=== PATIENT | male | born 1970 | race African-American/Black ===

== ENCOUNTER 2022-04-11 19:35 | Emergency (ER) | payer BC, SELFPAY ==
--- NOTE | 2022-04-11 19:39 | ECG_ITS ---
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 Measurements Intervals [place] Rate: 80 P: 13 [place]: 168 QRS: -11 QRSD: 85 T: 24 QT: 396 QTc: 458 Interpretive Statements SINUS RHYTHM LEFT VENTRICULAR HYPERTROPHY AND ST-T CHANGE [VOLTAGE CRITERIA PLUS ST/T ABNORMALITY] Nonspecific T wave changes No previous ECG available for comparison Electronically Signed On 04-11-2022 20:56:21 CDT by Austin Garner M.D. [id number]
[2022-04-11 19:41] VITALS: BP 147/95; PULSE 90; RESP 19; TEMP 37.2; O2SAT 99; BMI 41.5
--- NOTE | 2022-04-11 19:45 | XRR_ITS ---
PROCEDURE INFORMATION: Exam: XR Chest Exam date and time: 04/11/2022 7:55 PM Age: 52 years old Clinical indication: Chest pressure and chest wall pain; Additional info: Chest pain TECHNIQUE: Imaging protocol: Radiologic exam of the chest. Views: 1 view. COMPARISON: No relevant prior studies available. FINDINGS: Lungs: Unremarkable. No consolidation. Pleural spaces: Unremarkable. No pleural effusion. No pneumothorax. Heart/Mediastinum: Unremarkable. No cardiomegaly. Bones/joints: Unremarkable. XR/XR chest 1V portable [id number] IMPRESSION: No acute findings.
[2022-04-11 19:50] LABS: Basophils # 0.1 10^3/uL (0.0-0.1); Basophils % 0.8 %; Eosinophils # 0.1 10^3/uL (0.0-0.8); Eosinophils % 1.4 %; Hematocrit 45.3 % (42.0-52.0); Hemoglobin 14.6 g/dL (11.7-16.6); Lymphocytes # 2.8 10^3/uL (0.8-4.8); Lymphocytes % 43.5 %; Mean Corpuscular HGB Conc 32.2 g/dL (30.0-36.0); Mean Corpuscular Hemoglobin 32.8 pg (28.0-34.0); Mean Corpuscular Volume 101.8 fl (80-94); Monocytes # 0.4 10^3/uL (0.2-0.9); Monocytes % 6.6 %; Neutrophils % 47.4 %; Nucleated Red Blood Cells % 0 %; Platelet Count 209 10^3/cmm (130-400); Red Blood Count 4.45 10^6/uL (4.1-5.3); Red Cell Distribution Width 13.2 % (12.1-15.1); White Blood Count 6.5 10^3/uL (4.0-10.0)
--- NOTE | 2022-04-11 19:52 | ED_ITS ---
HPI - Chest Pain General: Chief Complaint: Chest Pain Stated Complaint: Chest Pain Time Seen by Provider: 04/11/22 19:48 Source: patient and EMS Mode of arrival: EMS Limitations: no limitations History of Present Illness: 52-year-old male states that he has been having abdominal and chest pain over the last month. He states it is worsened over last 2 weeks states it starts in his upper abdomen and goes up to his chest some burning pain denies any shortness of breath denies any vomiting denies any d iaphoresis states he recently moved here he does have a history of bipolar is out of his Depakote. Denies any heart history is a non-smoker. Associated symptoms: Reports abdominal pain; Deny dyspnea or fever(s) Review of Systems Const: Denies: fever(s), chills, body aches or change in appetite Eyes: Denies: blurry vision or eye discomfort ENMT: Denies: throat pain or dental pain Card: Reports: chest pain Resp: Denies: dyspnea GI: Reports: abdominal pain : Denies: dysuria Musc: Denies: neck pain or back pain Skin/Breast: Denies: rash Neuro: Denies: headache(s) Psych: Denies: depression Genaro/Lymph: Denies: easy bruising All/Imm: Denies: urticaria PFSH ED PFSH: Medical History (Updated 04/11/22 @ 20:25 by Yeimy Gilliam MD) Bipolar 1 disorder Social History (Updated 04/11/22 @ 19:54 by Yeimy Gilliam MD) Smoking and tobacco status: never smoked Physical Exam Const: COMMON NORMALS: no acute distress, patient oriented x3 and healthy a ppearing HENMT: COMMON NORMALS: normocephalic and atraumatic HEAD & SCALP: normocephalic and atraumatic Eye: COMMON NORMALS: Equal, round and reactive pupils present and EOMs intact bilaterally PUPIL: Yes Equal, round and reactive pupils present Neck/C-Spine: COMMON NORMALS: full ROM and supple Chest: COMMONS NORMALS: normal inspection of the chest and normal palpation of entire chest wall Resp: COMMON NORMALS: normal respiratory effort, No retractions, No use of accessory muscles and clear to auscultation bilaterally AUSCULTATION: clear to auscultation bilaterally Cardio: COMMON NORMALS: regular rate, regular rhythm and No murmurs present (Cardio) RATE: regular rate RHYTHM: regular rhythm GI: COMMON NORMALS: Normal to inspection, nondistended, normoactive bowel sounds present, Soft to palpation, non-tender and no masses PALPATION: Yes Soft to palpation Extremity: COMMON NORMALS: normal to inspection and full ROM Neuro: COMMON NORMALS: patient oriented x3, moves all extremities and no focal motor deficits Psych: COMMON NORMALS: mental status grossly normal, Normal thought process p resent and cooperative THOUGHT PROCESS: Normal thought process present Skin: COMMON NORMALS: no rashes or lesions noted and no wounds GENERAL SKIN EXAM: no rashes or lesions noted Course Vital Signs: Vital signs: Vital Signs Temperature 98.9 F 04/11/22 19:41 Pulse Rate 85 04/11/22 20:19 Respiratory Rate 12 04/11/22 20:19 Blood Pressure 150/96 04/11/22 20:19 Pulse Oximetry 96 04/11/22 20:19 Oxygen Delivery Me thod 04/11/22 20:19 MDM - Chest Pain Medical Decision Making Patient presents with abdominal pain and chest pain for weeks is likely gastritis his blood works normal troponins normal no sign of acute coronary syndrome his abdominal exam is benign we will start him on Protonix we will refill his Depakote he is to follow-up return if worsening he understands agrees plan. Lab Data : 04/11/22 19:43 04/11/22 19:43 Radiology Impressions Chest X-Ray 04/11/22 19:45 IMPRESSION: No acute findings. Laboratory Results WBC 6.5 10^3/uL (4.0-10.0) 04/11/22 19:43 RBC 4.45 10^6/uL (4.1-5.3) 04/11/22 19:43 Hgb 14.6 g/dL (11.7-16.6) 04/11/22 19:43 Hct 45.3 % (42.0-52.0) 04/11/22 19:43 MCV 101.8 fl (80-94) H 04/11/22 19:43 MCH 32.8 pg (28.0-34.0) 04/11/22 19:43 MCHC 32.2 g/dL (30.0-36.0) 04/11/22 19:43 RDW 13.2 % (12.1-15.1) 04/11/22 19:43 Plt Count 209 10^3/cmm (130-400) 04/11/22 19:43 MPV 10.0 fL (7.4-10.4) 04/11/22 19:43 Neut % (Auto) 47.4 % 04/11/22 19:43 Lymph % (Auto) 43.5 % 04/11/22 19:43 [place] % (Auto) 6.6 % 04/11/22 19:43 Eos % (Auto) 1.4 % 04/11/22 19:43 Baso % (Auto) 0.8 % 04/11/22 19:43 Neut # (Auto) 3.10 10^3/uL (1.8-7.7) 04/11/22 19:43 Lymph # (Auto) 2.8 10^3/uL (0.8-4.8) 04/11/22 19:43 [place] # (Auto) 0.4 10^3/uL (0.2-0.9) 04/11/22 19:43 Eos # (Auto) 0.1 10^3/uL (0.0-0.8) 04/11/22 19:43 Baso # (Auto) 0.1 10^3/uL (0.0-0.1) 04/11/22 19:43 Nucleated RBC % (auto) 0 % 04/11/22 19:43 Nucleated RBCs # 0.0 /100WBC 04/11/22 19:43 Sodium 138 mmol/L (136-145) 04/11/22 19:43 Potassium 3.9 mmol/L (3.5-5.1) 04/11/22 19:43 Chloride 98 mmol/L (98-107) 04/11/22 19:43 Carbon Dioxide 31 mmol/L (22-29) H 04/11/22 19:43 Anion Gap 12.9 (5-19) 04/11/22 19:43 BUN 11 mg/dL (6-20) 04/11/22 19:43 Creatinine 0.8 mg/dL (0.7-1.2) 04/11/22 19:43 GFR Calculation 123.8 mL/min (90-130) 04/11/22 19:43 Glucose 153 mg/dL (65-115) H 04/11/22 19:43 Calculated Osmolality 288 mOsm/kg (285-295) 04/11/22 19:43 Calcium 8.7 mg/dL (8.5-10.5) 04/11/22 19:43 Troponin T Baseline 7 ng/L (0-15) 04/11/22 19:43 Lipase 22 U/L (13-60) 04/11/22 19:43 EKG Data EKG 1: I personally reviewed and interpreted this EKG as follows: EKG interpretation date: 04/11/22 EKG interpretation time: 19:39 Interpretation: nsr hr [address] or t wave abnormalities qrs 85 qtc 432 Discharge Plan Discharge Patient Disposition: Home Clinical Impression: Abdominal pain, Chest pain Prescriptions: New Protonix 40 mg tablet,delayed release (DR/EC) 40 mg PO DAILY Qty: 60 0RF Continued Depakote ER 500 mg Tablet Extended Release 24 Hr 500 mg PO DAILY Qty: 30 0RF Discharge Orders: Discharge ED (Routine); Ordered 04/11/22 Ordered By: Yeimy Gilliam Discharge Diet: Advance as tolerated Discharge Activity: Resume usual activity Patient Instructions: Chest Pain (ED), Abdominal Pain (ED) Coding Level of Care Code ED Desulfurizer Operator for Chg Fwd Exam Comprehensive
[2022-04-11 19:53] VITALS: BP 147/95; PULSE 81; RESP 22; O2SAT 97
[2022-04-11 20:13] LABS: Troponin(5th) Baseline 7 ng/L (0-15)
[2022-04-11 20:14] LABS: Blood Urea Nitrogen 11 mg/dL (6-20); Calcium 8.7 mg/dL (8.5-10.5); Carbon Dioxide 31 mmol/L (22-29); Chloride 98 mmol/L (98-107); Creatinine Clr Calc Pharmacy 150.6513; Glomerular Filtration Rate 123.8 mL/min (90-130); Glucose 153 mg/dL (65-115); Lipase 22 U/L (13-60); Osmolality Calculated 288 mOsm/kg (285-295); Sodium 138 mmol/L (136-145)
[2022-04-11] MEDS: ondansetron 2 mg/ML SDV 2 mL 4 MG IVP (20:15)
[2022-04-11] MEDS: HYDROmorphone 1 mg/mL INJ 1 mL 0.5 MG IVP (20:15)
[2022-04-11 20:19] VITALS: BP 150/96; PULSE 85; RESP 12; O2SAT 96
[2022-04-11 20:20] LABS: Anion Gap 12.9 (5-19); Potassium 3.9 mmol/L (3.5-5.1)
[2022-04-11] MEDS: lidocaine 2% viscous 15 ML, aluminum-mag hydrox-simethicon 30 ML, sucralfate oral liq 1 GM PO (20:56)
[2022-04-11 20:57] VITALS: BP 134/96; PULSE 82; RESP 16; O2SAT 95
== END 2022-04-11 21:24 | disposition home or self-care (01) ==
PROVIDERS: Emergency Medicine; Emergency Provider Emergency Medicine
DX: R10.9 Unspecified abdominal pain (principal); R07.9 Chest pain, unspecified
CPT/HCPCS: 71045; 80048; 83690; 84484; 85025; 93005; 96374; 96375; 99285; J1170; J2405

== ENCOUNTER → 2022-06-05 10:02 | Outpatient (BNVA) | payer OTHER, SELFPAY | PROVIDERS: Visit Provider Psychiatry & Neurology Psychiatry | DX: F33.1 Major depressive disorder, recurrent, moderate (principal) | CPT/HCPCS: 80061; 83036 ==

== ENCOUNTER 2022-06-11 10:25 | Emergency (ER) | payer BC, SELFPAY ==
[2022-06-11 10:39] VITALS: BP 164/95; PULSE 66; RESP 16; TEMP 36.6; O2SAT 94
--- NOTE | 2022-06-11 11:14 | W.ED.EAR ---
HPI - Ear Problem General: Chief complaint: Ear Stated complaint: ear pain, both Time Seen by Provider: 06/11/22 10:43 History of Present Illness: Patient is a 52-year-old male comes to the ED with bilateral ear pain. Symptoms have been going on for about a week but over the last 2 days the ear pain is gotten worse. Denies any drainage from ears. Denies any other complaints. Associated symptoms: Reports ear or mastoid pain (bilateral); Denies fever(s), headache(s) or neck pain Review of Systems Const: Denies: fever(s), chills or fatigue Eyes: Denies: change in vision or eye discomfort ENMT: Reports: ear or mastoid pain (bilateral); Denies: throat pain, odynophagia, nasal discharge or nasal congestion Card: Denies: chest pain, palpitations, edema, swelling of feet/ankles, dyspnea on exertion or orthopnea Resp: Denies: dyspnea, productive cough or non-productive cough GI: Denies: abdominal pain, nausea, vomiting, diarrhea, constipation or hematochezia : Denies: flank pain, difficulty urinating, dysuria or hematuria Musc: Denies: neck pain, back pain or extremity swelling Skin/Breast: Denies: rash or new lesions Neuro: Denies: headache(s), numbness in extremities or weakness in extremities PFSH ED PFSH: Medical History Bipolar 1 disorder Psychiatric care Family History Mother Stroke TIA Bipolar depression Seizure Social History Smoking and tobacco status: never smoked Second hand smoke exposure: No Alcohol intake: never Adopted: No Caregiver/support person: No Lives independently: No Household members: significant other Housing: Manufactured/Mobile home Marital status: Life Partner Number of children: 0 Number of grandchildren: 0 Highest education level completed: High School Graduate service: No Current occupational status: disabled Current occupational exposures/hazards: No Pets and animals: No History of recent travel: No Leisure activites: music and other Leisure activities details: play dj equipment, tictoc Current gender identity: Male Teena/Taoism: None Agree to transfusion: Yes Financial difficulty paying for basics: Not Very Hard Physical Exam Const: COMMON NORMALS: no acute distress, patient oriented x3 and alert GENERAL APPEARANCE: cooperative and comfortable HENMT: COMMON NORMALS: normocephalic and EAC's normal HEAD & SCALP: normocephalic EXTERNAL AUDITORY CANAL: EAC's normal TYMPANIC MEMBRANE: TM abnormal TM laterality: bilateral erythematous and with fluid behind the TM MOUTH: Normal oral and palatal mucosa present THROAT: posterior oropharynx normal and uvula midline Neck/C-Spine: COMMON NORMALS: supple GENERAL: Yes normal visual inspection Resp: COMMON NORMALS: normal respiratory effort, No retractions, No use of accessory muscles and clear to auscultation bilaterally AUSCULTATION: clear to auscultation bilaterally Cardio: COMMON NORMALS: regular rate, regular rhythm, S1 normal heart sound present, S2 normal heart sound present, No gallops present (Cardio), No clicks present (Cardio), No murmurs present (Cardio) and Peripheral pulses 2+ throughout RATE: regular rate RHYTHM: regular rhythm HEART SOUNDS: S1 normal heart sound present and S2 normal heart sound present PERIPHERAL PULSES: Peripheral pulses 2+ throughout GI: COMMON NORMALS: Normal to inspection, nondistended, normoactive bowel sounds present, Soft to palpation, non-tender and no masses PALPATION: Yes Soft to palpation : COMMON NORMALS: Yes no CVA tenderness BLADDER/KIDNEY EXAM: Yes no CVA tenderness Back/Pelvis: COMMON NORMALS: no CVA tenderness Extremity: COMMON NORMALS: normal to inspection Neuro: COMMON NORMALS: patient oriented x3 SENSORIUM/ORIENTATION: Yes alert GAIT: Yes Normal gait present Skin: GENERAL SKIN EXAM: dry skin Course Vital Signs: Vital signs: Vital Signs Temperature 97.8 F 06/11/22 10:39 Pulse Rate 66 06/11/22 10:39 Respiratory Rate 16 06/11/22 10:39 Blood Pressure 164/95 06/11/22 10:39 Pulse Oximetry 94 06/11/22 10:39 MDM - Ear Medical Decision Making Patient is a 52-year-old male comes to the ED with bilateral ear pain. Vitals are stable. Patient appears nontoxic and in no acute distress or pain. Upon exam patient has otitis media in both right and left ears. He was discharged home prescription for antibiotic. Told to follow-up with his PCP in the next week for reevaluation. Patient understood and agreed with plan. Discharge Plan Discharge Patient Disposition: Home Clinical Impression: Otitis media Qualifiers: Otitis media type: serous Chronicity: acute Laterality: bilateral Recurrence: non-recurrent Qualified Code(s): H65.03 - Acute serous otitis media, bilateral Condition: Stable Prescriptions: New amoxicillin-pot clavulanate 500-125 mg tablet 1 tab PO BID 10 Days Qty: 20 0RF No Action sertraline [Zoloft] 50 mg tablet 50 mg PO DAILY Qty: 30 2RF albuterol sulfate 90 mcg/actuation HFA aerosol inhaler 2 puff inhalation Q6H PRN fluticasone propion-salmeterol [Wixela Inhub] 250-50 mcg/dose blister with device 1 inh inhalation BID potassium citrate 99 mg capsule 99 mg PO DAILY magnesium 200 mg tablet 200 mg PO DAILY multivitamin Tablet 1 tab PO DAILY Protonix 40 mg tablet,delayed release (DR/EC) 40 mg PO DAILY Qty: 60 0RF Depakote ER 500 mg Tablet Extended Release 24 Hr 500 mg PO DAILY Qty: 30 0RF Discharge Orders: Discharge ED (Routine); Ordered 06/11/22 Ordered By: Neo Diaz Discharge Diet: Regular Discharge Activity: Increase activity as tolerated Activity Restrictions/Additional Instructions: Follow-up with medical provider as directed in the next 5 to 7 days for reevaluation. Take medications as prescribed. Return to the ER or your medical provider if condition worsens. Please read and understand discharge instructions. Thank you for choosing [facility] for your healthcare needs today. Please realize this is an emergency room and that we are providing you with a medical screening exam and this may not be complete and all inclusive of all the testing and or work up that you may need to determine your ailment or severity of your illness. It is very important that you follow up as instructed or that you return to the Emergency Department should you have concerns or if your condition changes or worsens in any way. Coding Level of Care Code ED Center Medical Director for Nhung Yu Exam Comprehensive
== END 2022-06-11 11:22 | disposition home or self-care (01) ==
PROVIDERS: Emergency Provider Physician Assistant
DX: H65.03 Acute serous otitis media, bilateral (principal)
CPT/HCPCS: 99283

== ENCOUNTER 2022-07-25 20:00 | Outpatient (CLI) | payer BC, MEDICAID, SELFPAY ==
[2022-07-19 10:30] VITALS: BMI 43.6
== END 2022-07-25 20:01 | disposition home or self-care (01) ==
PROVIDERS: Visit Provider Family Medicine
DX: G47.10 Hypersomnia, unspecified (principal); R06.83 Snoring; R53.83 Other fatigue; G47.33 Obstructive sleep apnea (adult) (pediatric)
CPT/HCPCS: 95810

== ENCOUNTER 2022-09-15 10:33 | Emergency (ER) | payer MEDICARE, MEDICAID, SELFPAY ==
[2022-08-22 09:38] VITALS: BMI 43.6
[2022-09-15 10:35] VITALS: BP 155/105; PULSE 69; RESP 16; TEMP 37; O2SAT 97; BMI 45.8
--- NOTE | 2022-09-15 10:46 | CTR_ITS ---
PROCEDURE INFORMATION: Exam: CTA Chest With Contrast CTA Abdomen and Pelvis With Contrast Exam date and time: 09/15/2022 11:37 AM Age: 52 years old Clinical indication: Nausea; Abdominal pain; Epigastric; Angina; Chest pressure; Additional info: Generalized abdom pain and epigastric pain, nausea TECHNIQUE: Imaging protocol: Computed tomographic angiography of the chest with contrast. Computed tomographic angiography of the abdomen and pelvis with contrast. 3D rendering (Not supervised by radiologist): MIP and/or 3D reconstructed images were created by the technologist. Radiation optimization: All CT scans at this facility use at least one of these dose optimization techniques: automated exposure control; mA and/or kV adjustment per patient size (includes targeted exams where dose is matched to clinical indication); or iterative reconstruction. Contrast material: OMNI 350; Contrast volume: 100 ml; Contrast route: INTRAVENOUS (IV); REPORTING DATA: Count of CT and Cardiac NM exams in prior 12 months: This patient has received 0 known CTs and 0 known cardiac nuclear medicine studies in the 12 months prior to the current study. COMPARISON: CR (CHEST, ) 09/15/2022 10:55 AM RADIATION DOSE METRICS: Total DLP (mGy-cm): 2220.28 FINDINGS: VASCULATURE: Pulmonary arteries: No pulmonary embolus is seen. Thoracic, abdominal and pelvic arterial system: There is aneurysmal dilatation of the ascending thoracic aorta measuring 4.0 x 4.1 cm. There is no evidence of rupture or dissection. No abdominal aortic aneurysm. No abdominal aortic dissection. The celiac, superior mesenteric, renal, inferior mesenteric, common iliac, internal iliac, external iliac, common femoral and proximal femoral arteries are adequately patent, bilaterally, without evidence of narrowing, occlusion or dissection. CHEST: Lungs: There is mild peribronchial wall thickening. No pulmonary consolidation. No pulmonary mass. Pleural spaces: No pleural effusion. No pneumothorax. Heart: No pericardial effusion. Diaphragm: No hiatal hernia. ABDOMEN AND PELVIS: Liver: The liver is enlarged measuring 18.4 cm. There is diffuse hepatic steatosis. There are regions of fatty sparing. Gallbladder and bile ducts: Status post cholecystectomy. Pancreas: The pancreas is unremarkable. Spleen: The spleen is unremarkable. Adrenal glands: The adrenal glands are unremarkable. Kidneys and ureters: The kidneys are unremarkable. Stomach and bowel: The stomach and small bowel are unremarkable. The colon is unremarkable. There is hazy stranding surrounding a fat lobule adjacent to the proximal transverse colon most compatible with epiploic appendagitis. Appendix: The appendix is unremarkable. Intraperitoneal space: No free intraperitoneal air. Urinary bladder: The bladder is partially decompressed. Reproductive: The prostate measures 3.5 x 3.6 cm. Lymph nodes: No significant mediastinal lymphadenopathy. No retroperitoneal lymphadenopathy. Bones/joints: No acute fracture is seen. Soft tissues: There is mild bilateral gynecomastia. Small fat containing inguinal hernias. There has been prior umbilical hernia repair. CT/CT angio chest w abd pel w con IMPRESSION: 1. There is aneurysmal dilatation of the ascending thoracic aorta measuring 4.0 x 4.1 cm. There is no evidence of rupture or dissection. 2. No abdominal aortic aneurysm. No abdominal aortic dissection. 3. Hazy stranding surrounding a fat lobule adjacent to the proximal transverse colon most compatible with epiploic appendagitis. 4. Mild peribronchial wall thickening; query viral infection/bronchitis, chronic bronchitis and/or asthma. 5. Hepatomegaly with diffuse hepatic steatosis.
--- NOTE | 2022-09-15 10:46 | XRR_ITS ---
PROCEDURE INFORMATION: Exam: XR Chest Exam date and time: 09/15/2022 10:55 AM Age: 52 years old Clinical indication: Epigastric and chest pain. TECHNIQUE: Imaging protocol: Radiologic exam of the chest. Views: 1 view. COMPARISON: CR (CHEST, ) 04/11/2022 7:55 PM FINDINGS: Lungs: There is smooth bulging of the right hilum raising concern for an ascending thoracic aortic aneurysm. No pulmonary consolidation. Pleural spaces: No pleural effusion. No pneumothorax. Heart/Mediastinum: The cardiac silhouette is approximately unchanged. No gross evidence of pneumomediastinum. Bones/joints: No gross fracture. XR/XR chest 1V portable [id number] IMPRESSION: There is smooth bulging of the right hilum raising concern for an ascending thoracic aortic aneurysm. Consider CTA chest.
--- NOTE | 2022-09-15 10:47 | ED_ITS ---
HPI - Abdominal Pain General: Chief Complaint: Abdominal Pain Stated Complaint: ABD PAIN Time Seen by Provider: 09/15/22 10:34 History of Present Illness: Patient is a 52-year-old male comes to the ED via EMS with abdominal pain. Symptoms started around 9 AM this morning. Past surgi katie history of cholecystectomy and hiatal hernia repair. He describes having pain in the epigastric region of his abdomen that he rates a 7 out of 10. He also reports having generalized pain all throughout his abdomen. He states this abdominal pain has been on and off for the several years. He came into the ED today because his abdominal pain was worse than usual. He endorses having some mild nausea. Patient also endorses having some bilateral lower rib pain. Denies any fevers, vomiting, bladder or bowel symptoms. Associated Symptoms: Reports nausea; Denies chills, constipation, diarrhea, dysuria, fever(s), hematochezia, hematuria and vomiting Review of Systems Const: Denies: fever(s), chills or fatigue Eyes: Denies: change in vision or eye discomfort ENMT: Denies: throat pain, odynophagia, nasal discharge or nasal congestion Card: Denies: chest pain, palpitations, edema, swelling of feet/ankles, dyspnea on exertion or orthopnea Resp: Denies: dyspnea, productive cough or non-productive cough GI: Reports: abdominal pain and nausea; Denies: vomiting, diarrhea, constipation or hematochezia : Denies: flank pain, difficulty urinating, dysuria or hematuria Musc: Reports: other (Bilateral lower rib pain.); Denies: neck pain, back pain or extremity swelling Skin/Breast: Denies: rash or new lesions Neuro: Denies: headache(s), numbness in extremities or weakness in extremities [facility] ED PFSH: Medical History Bipolar 1 disorder Psychiatric care Family History Mother Stroke TIA Bipolar depression Seizure Social History Smoking and tobacco status: never smoked Second hand smoke exposure: No Alcohol intake: never Adopted: No Caregiver/support person: No Lives independently: No Household members: significant other Housing: Manufactured/Mobile home Marital status: Life Partner Number of children: 0 Number of grandchildren: 0 Highest education level completed: High School Graduate service: No Current occupational status: disabled Current occupational exposures/hazards: No Pets and animals: No Leisure activites: music and other Leisure activities details: play dj equipment, tictoc Current gender identity: Male Teena/Mu-Ism: None Agree to transfusion: Yes Financial difficulty paying for basics: Not Very Hard Physical Exam Const: COMMON NORMALS: patient oriented x3 and alert GENERAL APPEARANCE: cooperative and comfortable HENMT: COMMON NORMALS: normocephalic HEAD & SCALP: normocephalic MOUTH: Normal oral and palatal mucosa present THROAT: posterior oropharynx normal and uvula midline Neck/C-Spine: COMMON NORMALS: supple GENERAL: Yes normal visual inspection Resp: COMMON NORMALS: normal respiratory effort, No retractions, No use of accessory muscles and clear to auscultation bilaterally AUSCULTATION: clear to auscultation bilaterally Cardio: COMMON NORMALS: regular rate, regular rhythm, S1 normal heart sound present, S2 normal heart sound present, No gallops present (Cardio), No clicks present (Cardio), No murmurs present (Cardio) and Peripheral pulses 2+ throughout RATE: regular rate RHYTHM: regular rhythm HEART SOUNDS: S1 normal heart sound present and S2 normal heart sound present PERIPHERAL PULSES: Peripheral pulses 2+ throughout GI: COMMON NORMALS: Normal to inspection, nondistended, normoactive bowel sounds present, Soft to palpation and no masses AUSCULTATION: Yes normoactive bowel sounds PALPATION: Yes Soft to palpation and Yes Tenderness to palpation present (GI) (Epigastric tenderness and generalized abdominal tenderness) : COMMON NORMALS: Yes no CVA tenderness BLADDER/KIDNEY EXAM: Yes no CVA tenderness Back/Pelvis: COMMON NORMALS: no CVA tenderness Extremity: COMMON NORMALS: normal to inspection Neuro: COMMON NORMALS: patient oriented x3 SENSORIUM/ORIENTATION: Yes alert GAIT: Yes Normal gait present Skin: GENERAL SKIN EXAM: dry skin Course Vital Signs: Vital signs: Vital Signs Temperature 98.3 F 09/15/22 13:29 Pulse Rate 69 09/15/22 13:29 Respiratory Rate 14 09/15/22 13:29 Blood Pressure 132/93 09/15/22 13:29 Pulse Oximetry 98 09/15/22 13:29 Oxygen Delivery Me thod 09/15/22 13:29 Oxygen Flow Rate 2 09/15/22 13:29 MDM - Abdominal Pain Medical Decision Making Patient is a 52-year-old male comes to the ED via EMS with abdominal pain. Symptoms started around 9 AM this morning. Past surgical history of cholecystectomy and hiatal hernia repair. He describes having pain in the epigastric region of his abdomen that he rates a 7 out of 10. He also reports having generalized pain all throughout his abdomen. He states this abdominal pain has been on and off for the several years. He came into the ED today because his abdominal pain was worse than usual. He endorses having some mild nausea. Patient also endorses having some bilateral lower rib pain. Denies any fevers, vomiting, bladder or bowel symptoms. Vitals are stable. Patient has epigastric and generalized abdominal tenderness but the rest of exam is benign. He appears comfortable in no acute distress. Labs are all unremarkable. Troponin negative. EKG showed normal sinus rhythm, [address] segment ovation or depression seen. Chest x-ray shows concerning sign for ascending thoracic aortic aneurysm. CT a of chest showed a 4 x 4 centimeter ascending thoracic aortic aneurysm with no evidence of rupture or dissection. CT of abdomen showed signs of epiploic appendagitis rest of exam is benign. Patient was given IV morphine and Toradol here in the ED. He was able to tolerate p.o. fluids and was stable for discharge home. He was diagnosed with epiploic appendagitis whi ch is self-limiting and thoracic aortic aneurysm. He was told to have follow-up with his PCP within the next week for reevaluation. He was sent home with a prescription for ibuprofen 800 mg and nausea medication. Return to ED precautions given. Patient understood agree with plan. Lab Data I reviewed the patient's lab results. 09/15/22 11:13 09/15/22 11:13 Labs/Radiology: Radiology Impressions Chest X-Ray 09/15/22 10:46 IMPRESSION: There is smooth bulging of the right hilum raising concern for an ascending thoracic aortic aneurysm. Consider CTA chest. 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 Chest/Abdomen/Pelvis CT 09/15/22 10:46 IMPRESSION: 1. There is aneurysmal dilatation of the ascending thoracic aorta measuring 4.0 x 4.1 cm. There is no evidence of rupture or dissection. 2. No abdominal aortic aneurysm. No abdominal aortic dissection. 3. Hazy stranding surrounding a fat lobule adjacent to the proximal transverse colon most compatible with epiploic appendagitis. 4. Mild peribronchial wall thickening; query viral infection/bronchitis, chronic bronchitis and/or asthma. 5. Hepatomegaly with diffuse hepatic steatosis. Laboratory Results WBC 4.1 10^3/uL (4.0-10.0) 09/15/22 11:13 RBC 4.58 10^6/uL (4.1-5.3) 09/15/22 11:13 Hgb 14.9 g/dL (11.7-16.6) 09/15/22 11:13 Hct 47.1 % (42.0-52.0) 09/15/22 11:13 MCV 102.8 fl (80-94) H 09/15/22 11:13 MCH 32.5 pg (28.0-34.0) 09/15/22 11:13 MCHC 31.6 g/dL (30.0-36.0) 09/15/22 11:13 RDW 13.2 % (12.1-15.1) 09/15/22 11:13 Plt Count 173 10^3/cmm (130-400) 09/15/22 11:13 MPV 10.3 fL (7.4-10.4) 09/15/22 11:13 Neut % (Auto) 44.4 % 09/15/22 11:13 Lymph % (Auto) 43.8 % 09/15/22 11:13 [place] % (Auto) 9.7 % 09/15/22 11:13 Eos % (Auto) 0.7 % 09/15/22 11:13 Baso % (Auto) 0.7 % 09/15/22 11:13 Neut # (Auto) 1.83 10^3/uL (1.8-7.7) 09/15/22 11:13 Lymph # (Auto) 1.8 10^3/uL (0.8-4.8) 09/15/22 11:13 [place] # (Auto) 0.4 10^3/uL (0.2-0.9) 09/15/22 11:13 Eos # (Auto) 0.0 10^3/uL (0.0-0.8) 09/15/22 11:13 Baso # (Auto) 0.0 10^3/uL (0.0-0.1) 09/15/22 11:13 Nucleated RBC % (auto) 0 % 09/15/22 11:13 Nucleated RBCs # 0.0 /100WBC 09/15/22 11:13 Sodium 140 mmol/L (136-145) 09/15/22 11:13 Potassium 4.1 mmol/L (3.5-5.1) 09/15/22 11:13 Chloride 99 mmol/L (98-107) 09/15/22 11:13 Carbon Dioxide 35 mmol/L (22-29) H 09/15/22 11:13 Anion Gap 10.1 (5-19) 09/15/22 11:13 BUN 8 mg/dL (6-20) 09/15/22 11:13 Creatinine 1.0 mg/dL (0.7-1.2) 09/15/22 11:13 GFR Calculation 95.7 mL/min (90-130) 09/15/22 11:13 Glucose 117 mg/dL (65-115) H 09/15/22 11:13 Calculated Osmolality 289 mOsm/kg (285-295) 09/15/22 11:13 Calcium 8.9 mg/dL (8.5-10.5) 09/15/22 11:13 Total Bilirubin 0.3 mg/dL (0.15-1.2) 09/15/22 11:13 AST 63 U/L (0-40) H 09/15/22 11:13 ALT 52 U/L (0-41) H 09/15/22 11:13 Alkaline Phosphatase 58 U/L (40-130) 09/15/22 11:13 Troponin T Baseline 7 ng/L (0-15) 09/15/22 11:13 Total Protein 6.7 g/dL (6.6-8.7) 09/15/22 11:13 Albumin 3.7 g/dL (3.5-5.2) 09/15/22 11:13 Globulin 3.0 g/dL (1.3-4.6) 09/15/22 11:13 Lipase 19 U/L (13-60) 09/15/22 11:13 EKG Data EKG 1: EKG interpretation date: 09/15/22 Interpretation: Normal sinus rhythm, 64 bpm, no ST segment elevation or depression seen. Discharge Plan Discharge Patient Disposition: Home Clinical Impression: Epiploic appendagitis Thoracic ascending aortic aneurysm Qualifiers: Presence of rupture: without rupture Qualified Code(s): I71.21 - Aneurysm of the ascending aorta, without rupture Condition: Stable Prescriptions: New ibuprofen 800 mg tablet 800 mg PO Q8H PRN (Reason: pain) Qty: 20 0RF metoclopramide HCl 10 mg tablet 10 mg PO Q6H PRN (Reason: nausea and vomiting) Qty: 20 0RF No Action sertraline [Zoloft] 50 mg tablet 50 mg PO DAILY Qty: 30 2RF albuterol sulfate 90 mcg/actuation HFA aerosol inhaler 2 puff inhalation Q6H PRN fluticasone propion-salmeterol [Wixela Inhub] 250-50 mcg/dose blister with device 1 inh inhalation BID potassium citrate 99 mg capsule 99 mg PO DAILY magnesium 200 mg tablet 200 mg PO DAILY multivitamin Tablet 1 tab PO DAILY Protonix 40 mg tablet,delayed release (DR/EC) 40 mg PO DAILY Qty: 60 0RF Depakote ER 500 mg Tablet Extended Release 24 Hr 500 mg PO DAILY Qty: 30 0RF Discharge Orders: Discharge ED (Routine); Ordered 09/15/22 Ordered By: Daniel Diaz Discharge Diet: Advance as tolerated and Clear Liquid Discharge Activity: Increase activity as tolerated Patient Instructions: Epiploic Appendagitis (ED) Activity Restrictions/Additional Instructions: Follow-up with medical provider as directed in the next 3 to 5 days for reevaluation. Take medications as prescribed. Return to the ER or your medical provider if condition worsens. Please read and understand discharge instructions. Thank you for choosing [facility] for your healthcare needs today. Please realize this is an emergency room and that we are providing you with a medical screening exam and this may not be complete and all inclusive of all the testing and or work up that you may need to determine your ailment or severity of your illness. It is very important that you follow up as instructed or that you return to the Emergency Department should you have concerns or if your condition changes or worsens in any way. Coding Level of Care Code ED Laboratory Technical Specialist for [facility] Yu
--- NOTE | 2022-09-15 10:57 | ECG_ITS ---
[facility] Test Date: 2022-09-15 Pat Name: Ayleen Collins Department: Room: Gender: Male Contract Loader: : 1970 Requested By: Dallin Lion Order Number: [id number] Elliott MD: Austin Garner M.D. Measurements Intervals [place] Rate: 64 P: 11 [place]: 182 QRS: -13 QRSD: 96 T: 12 QT: 403 QTc: 416 Interpretive Statements SINUS RHYTHM VOLTAGE CRITERIA FOR LVH [MEETS CRITERIA IN ONE OF: R(aVL), S(V1), R(V5), R(V5/V6)+S(V1)] NONSPECIFIC T-WAVE ABNORMALITY Compared to ECG 04/11/2022 19:39:02 ST (T wave) deviation no longer present T-wave abnormality still present Electronically Signed On 09-16-2022 19:37:08 CDT by Austin Garner M.D. [email or web address]
[2022-09-15 11:20] VITALS: RESP 18; O2SAT 96
[2022-09-15] MEDS: morphine 4 mg/mL SDV 1 mL IVP (11:20)
[2022-09-15] MEDS: ondansetron 2 mg/ML SDV 2 mL 4 MG IVP (11:20)
[2022-09-15] MEDS: sodium chloride 0.9% 1,000 ML 999 ML IV (11:22)
[2022-09-15 11:34] LABS: Basophils % 0.7 %; Eosinophils % 0.7 %; Hematocrit 47.1 % (42.0-52.0); Hemoglobin 14.9 g/dL (11.7-16.6); Lymphocytes # 1.8 10^3/uL (0.8-4.8); Lymphocytes % 43.8 %; Mean Corpuscular HGB Conc 31.6 g/dL (30.0-36.0); Mean Corpuscular Hemoglobin 32.5 pg (28.0-34.0); Mean Corpuscular Volume 102.8 fl (80-94); Mean Platelet Volume 10.3 fL (7.4-10.4); Monocytes # 0.4 10^3/uL (0.2-0.9); Monocytes % 9.7 %; Neutrophils # 1.83 10^3/uL (1.8-7.7); Neutrophils % 44.4 %; Nucleated Red Blood Cells % 0 %; Platelet Count 173 10^3/cmm (130-400); Red Blood Count 4.58 10^6/uL (4.1-5.3); Red Cell Distribution Width 13.2 % (12.1-15.1); White Blood Count 4.1 10^3/uL (4.0-10.0)
[2022-09-15 11:56] LABS: Alanine Aminotransferase 52 U/L (0-41); Albumin Level 3.7 g/dL (3.5-5.2); Alkaline Phosphatase 58 U/L (40-130); Anion Gap 10.1 (5-19); Aspartate Amino Transferase 63 U/L (0-40); Blood Urea Nitrogen 8 mg/dL (6-20); Calcium 8.9 mg/dL (8.5-10.5); Carbon Dioxide 35 mmol/L (22-29); Chloride 99 mmol/L (98-107); Glomerular Filtration Rate 95.7 mL/min (90-130); Glucose 117 mg/dL (65-115); Lipase 19 U/L (13-60); Osmolality Calculated 289 mOsm/kg (285-295); Potassium 4.1 mmol/L (3.5-5.1); Sodium 140 mmol/L (136-145); Total Bilirubin 0.3 mg/dL (0.15-1.2); Total Protein 6.7 g/dL (6.6-8.7)
[2022-09-15 12:01] LABS: Troponin(5th) Baseline 7 ng/L (0-15)
[2022-09-15] MEDS: iohexol 350 mg/mL 500 mL Btl (per mL) IV (12:04)
[2022-09-15 12:15] VITALS: BP 129/92; PULSE 82; O2SAT 90
[2022-09-15] MEDS: ketorolac 30 mg/mL INJ IVP (12:39)
[2022-09-15 13:29] VITALS: BP 132/93; PULSE 69; RESP 14; TEMP 36.8; O2SAT 98
--- NOTE | 2022-09-18 15:36 | DCPLANNER ---
09.16.22 - patient was called due to no primary care physician - patient stated that he sees Dr. Soto
== END 2022-09-15 13:28 | disposition home or self-care (01) ==
PROVIDERS: Family Medicine; Emergency Provider Physician Assistant
DX: K63.89 Other specified diseases of intestine (principal); I71.21 Aneurysm of the ascending aorta, without rupture
CPT/HCPCS: 71045; 71275; 74177; 80053; 83690; 84484; 85025; 93005; 96374; 96375; 99285; J1885; J2270; J2405; J7030; Q9967

== ENCOUNTER 2022-09-16 09:59 | Emergency (ER) | payer MEDICARE, MEDICAID, SELFPAY ==
[2022-08-22 09:38] VITALS: BMI 43.6
[2022-09-16 10:03] VITALS: BP 123/65; PULSE 83; RESP 14; TEMP 36.5; O2SAT 95; BMI 44.4
--- NOTE | 2022-09-16 10:18 | ED_ITS ---
Documented by User: Lydia Barnhart PA-C 09/16/22 15:35 HPI - Abdominal Pain General: Chief Complaint: Abdominal Pain Stated Complaint: CHEST PAIN Time Seen by Provider: 09/16/22 10:10 Source: patient Mode of arrival: ambulatory Limitations: no limitations History of Present Illness: 52-year-old male presents via EMS to the ER for the second time in 24 hours for generalized abdominal pain and complaints. Patient reports his abdominal pain has been going on for greater than 9 years. Patient describes this as exacerbations that happen off and on. Patient reports yesterday the pain worsened and has continued to worsen overnight. Patient describes sharp pain in his abdomen in addition to pain into the left side of his chest. Patient also reports pain in bilateral arms and hands and also bilateral legs. Patient reports a history of some shortness of breath but none worse today than normal. Patient had imaging done yesterday which indicated a thoracic abdominal aneurysm that was 4 x 4 cm. Everything else appeared pretty normal. Patient denies any known sick contacts. He has not discussed this worsening pain with his PCP. Patient cannot really give a reason as to what made him come to the ER the last couple of days that is anything different than the normal for him when he has an exacerbation of this pain. Review of Systems General: Reports: 10 or more systems reviewed and unremarkable except in HPI and below PFSH ED PFSH: Medical History Bipolar 1 disorder Psychiatric care Family History Mother Stroke TIA Bipolar depression Seizure Social History Smoking and tobacco status: never smoked Second hand smoke exposure: No Alcohol intake: never Adopted: No Caregiver/support person: No Lives independently: No Household members: significant other Housing: Manufactured/Mobile home Marital status: Life Partner Number of children: 0 Number of grandchildren: 0 Highest education level completed: High School Graduate service: No Current occupational status: disabled Current occupational exposures/hazards: No Pets and animals: No Leisure activites: music and other Leisure activities details: play dj equipment, tictoc Current gender identity: Male Teena/Moravian: None Agree to transfusion: Yes Financial difficulty paying for basics: Not Very Hard Physical Exam Const: COMMON NORMALS: no acute distress, patient oriented x3, alert and well nourished HENMT: COMMON NORMALS: normocephalic, atraumatic, external ears normal, Normal external nose present and Normal nasal mucous membranes and turbinates present HEAD & SCALP: normocephalic and atraumatic NOSE: Normal external nose present and Normal nasal mucous membranes and turbinates present EXTERNAL EAR: Yes external ears normal Eye: COMMON NORMALS: conjunctivae normal CONJUNCTIVA: Yes conjunctivae normal Neck/C-Spine: COMMON NORMALS: full ROM and no lymphadenopathy Chest: COMMONS NORMALS: normal inspection of the chest and normal palpation of entire chest wall Resp: COMMON NORMALS: normal respiratory effort, No retractions and clear to auscultation bilaterally EFFORT & INSPECTION: Yes able to speak in complete sentences AUSCULTATION: clear to auscultation bilaterally, no crackles, no rales, no rhonchi and no wheezes GI: COMMON NORMALS: Normal to inspection, nondistended, normoactive bowel sounds present, Soft to palpation and non-tender PALPATION: Yes Soft to palpation OTHER: obese Extremity: COMMON NORMALS: normal to inspection and full ROM Neuro: COMMON NORMALS: patient oriented x3 SENSORIUM/ORIENTATION: Yes alert Psych: COMMON NORMALS: cooperative OTHER: at baseline Skin: COMMON NORMALS: no rashes or lesions noted and no wounds GENERAL SKIN EXAM: no rashes or lesions noted Course ED course: 52-year-old male presents to the ER for the second time in 24 hours for continued abdominal pain. This has been going on greater than 9 years. Patient had imaging done yesterday and lab work. Patient was sent home and diagnosed with epiploic appendagitis. Patient also was found to have a thoracic ascending aortic aneurysm however that was 4 x 4 cm and something that would be followed up on. Patient reports pain is continued and radiating now into the left side of his chest. Patient denies any changes in the abdominal pain other than that it is still just there. At this time we are not going to repeat imaging today because nothing is changed however we will go ahead and repeat lab work to see if there are any abnormals or changes since yesterday. We will get EKG given chest pain. Vital Signs: Vital signs: Vital Signs Temperature 97.7 F 09/16/22 10:03 Pulse Rate 97 09/16/22 15:17 Respiratory Rate 14 09/16/22 15:17 Blood Pressure 123/85 09/16/22 15:17 Pulse Oximetry 91 09/16/22 15:17 Oxygen Delivery Me thod 09/16/22 11:11 Oxygen Flow Rate 2 09/16/22 11:11 MDM - Abdominal Pain Medical Decision Making CTA was done given patient's low O2 and chest pain. CTA indicates left lower lobe pneumonia however no change in the abdomen. We will go ahead and treat patient with doxycycline and prednisone at this time. Also will do Mucinex. Likely this is contributing to patient's hypoxia while in the ER. Patient was on 2 L and did fine on 2 L. When he was taken off the 2 L he did well however soon as he fell asleep he desatted into the upper 80s. Patient is currently undergoing a sleep study and is waiting for a titration study. Discussed with patient he needs to contact his PCP regarding this as it seems to be very important. Patient's liver enzymes did increase over the last [address] does not indicate any changes though. Otherwise take medications as prescribed. Follow-up with PCP in 2 to 3 days. Return to the ER with worsening symptoms. Patient verbalized understanding and was in agreement with the treatment plan. Lab Data 09/16/22 10:08 09/16/22 10:08 Labs/Radiology: Radiology Impressions Chest X-Ray 09/16/22 10:30 IMPRESSION: No acute findings. Chest/Abdomen/Pelvis CT 09/16/22 11:17 IMPRESSION: 1. Negative for pulmonary embolism. 2. Left lower lobe pneumonia 3. Negative for right heart strain 4. Negative for thoracic aortic aneurysm or dissection IMPRESSION: 1. Hepatomegaly and hepatic steatosis. 2. Status post cholecystectomy 3. Negative for abdominal aorta aneurysm or dissection. 4. There is normal mesenteric and renal arteries , Laboratory Results WBC 8.0 10^3/uL (4.0-10.0) 09/16/22 10:08 RBC 4.62 10^6/uL (4.1-5.3) 09/16/22 10:08 Hgb 15.2 g/dL (11.7-16.6) 09/16/22 10:08 Hct 48.9 % (42.0-52.0) 09/16/22 10:08 MCV 105.8 fl (80-94) H 09/16/22 10:08 MCH 32.9 pg (28.0-34.0) 09/16/22 10:08 MCHC 31.1 g/dL (30.0-36.0) 09/16/22 10:08 RDW 13.5 % (12.1-15.1) 09/16/22 10:08 Plt Count 179 10^3/cmm (130-400) 09/16/22 10:08 MPV 10.8 fL (7.4-10.4) H 09/16/22 10:08 Neut % (Auto) 77.0 % 09/16/22 10:08 Lymph % (Auto) 17.8 % 09/16/22 10:08 [place] % (Auto) 3.9 % 09/16/22 10:08 Eos % (Auto) 0.4 % 09/16/22 10:08 Baso % (Auto) 0.4 % 09/16/22 10:08 Neut # (Auto) 6.19 10^3/uL (1.8-7.7) 09/16/22 10:08 Lymph # (Auto) 1.4 10^3/uL (0.8-4.8) 09/16/22 10:08 [place] # (Auto) 0.3 10^3/uL (0.2-0.9) 09/16/22 10:08 Eos # (Auto) 0.0 10^3/uL (0.0-0.8) 09/16/22 10:08 Baso # (Auto) 0.0 10^3/uL (0.0-0.1) 09/16/22 10:08 Nucleated RBC % (auto) 0.2 % 09/16/22 10:08 Nucleated RBCs # 0.0 /100WBC 09/16/22 10:08 Sodium 140 mmol/L (136-145) 09/16/22 10:08 Potassium 4.6 mmol/L (3.5-5.1) 09/16/22 10:08 Chloride 97 mmol/L (98-107) L 09/16/22 10:08 Carbon Dioxide 36 mmol/L (22-29) H 09/16/22 10:08 Anion Gap 11.6 (5-19) 09/16/22 10:08 BUN 13 mg/dL (6-20) 09/16/22 10:08 Creatinine 1.1 mg/dL (0.7-1.2) 09/16/22 10:08 GFR Calculation 85.7 mL/min (90-130) L 09/16/22 10:08 Glucose 139 mg/dL (65-115) H 09/16/22 10:08 Calculated Osmolality 292 mOsm/kg (285-295) 09/16/22 10:08 Lactic Acid 1.1 mmol/L (0.5-2.2) 09/16/22 12:00 Calcium 9.0 mg/dL (8.5-10.5) 09/16/22 10:08 Total Bilirubin 0.2 mg/dL (0.15-1.2) 09/16/22 10:08 AST 84 U/L (0-40) H 09/16/22 10:08 ALT 147 U/L (0-41) H 09/16/22 10:08 Alkaline Phosphatase 70 U/L (40-130) 09/16/22 10:08 Troponin T Gen 5 ng/L 8 ng/L (0-15) 09/16/22 12:00 Total Protein 7.4 g/dL (6.6-8.7) 09/16/22 10:08 Albumin 3.9 g/dL (3.5-5.2) 09/16/22 10:08 Globulin 3.5 g/dL (1.3-4.6) 09/16/22 10:08 Lipase 17 U/L (13-60) 09/16/22 10:08 Urine Color Tiffanie (Yellow) 09/16/22 12:05 Urine Appearance Clear (CLEAR) 09/16/22 12:05 Urine pH 5 (5-7) 09/16/22 12:05 Ur Specific [place] 1.020 (1.005-1.030) 09/16/22 12:05 Urine Protein Neg (Negative) 09/16/22 12:05 Urine Glucose (UA) Norm (Normal) 09/16/22 12:05 Urine Ketones 1+ (Negative) H 09/16/22 12:05 Urine Blood Neg (Negative) 09/16/22 12:05 Urine Nitrate Negative (Negative) 09/16/22 12:05 Urine Bilirubin Neg (Negative) 09/16/22 12:05 Urine Urobilinogen 4 mg/dL (Negative) H 09/16/22 12:05 Ur Leukocyte Esterase Negative (Negative) 09/16/22 12:05 Critical Care Time Critical Care Time: Critical Care Time: No Discharge Plan Discharge Patient Disposition: Home Clinical Impression: Left lower lobe pneumonia Qualifiers: Pneumonia type: due to unspecified organism Qualified Code(s): J18.9 - Pneumonia, unspecified organism Condition: Stable Prescriptions: New Mucinex 600 mg tablet extended release 12hr 600 mg PO BID PRN (Reason: cough/Shortness of breath) 10 Days Qty: 20 0RF doxycycline hyclate 100 mg tablet 100 mg PO BID 10 Days Qty: 20 0RF prednisone 20 mg tablet 40 mg PO DAILY 4 Days Qty: 8 0RF No Action albuterol sulfate 90 mcg/actuation HFA aerosol inhaler 2 puff inhalation Q4H PRN (Reason: Shortness Of Breath) fluticasone propion-salmeterol [Wixela Inhub] 250-50 mcg/dose blister with device 1 inh inhalation BID multivitamin Tablet 1 tab PO QAM ibuprofen 800 mg tablet 800 mg PO Q8H PRN (Reason: pain) Qty: 20 0RF metoclopramide HCl 10 mg tablet 10 mg PO Q6H PRN (Reason: nausea and vomiting) Qty: 20 0RF chlorthalidone 25 mg tablet 25 mg PO QAM Aspir-81 81 mg Tablet,Delayed Release (Dr/Ec) 81 mg PO QAM pantoprazole 20 mg tablet,delayed release (DR/EC) 20 mg PO QAM divalproex 500 mg tablet extended release 24 hr 500 mg PO BID potassium gluconate 595 mg (99 mg) Tablet 595 mg PO QAM Zoloft 50 mg tablet 50 mg PO QAM Discharge Orders: Discharge ED (Routine); Ordered 09/16/22 Ordered By: Lydia Barnhart Referrals: Mann Soto MD [Primary Care Provider] - Discharge Diet: Usual diet Discharge Activity: Increase activity as tolerated Patient Instructions: Opioid Safety, Pain Management Activity Restrictions/Additional Instructions: Take doxycycline and prednisone as prescribed. Take Mucinex until improved. Finish the sleep study work-up as you need to have a thorough discussion with PCP regarding sleep apnea. Follow-up with PCP in 2 to 3 days. Return to the ER with worsening symptoms. Coding Level of Care Code ED Clinical Consultant for Chg Fwd Documented by User: Dallin Jordan, 09/17/22 08:19 HPI - Abdominal Pain General: Chief Complaint: Abdominal Pain Stated Complaint: CHEST PAIN Time Seen by Provider: 09/16/22 10:10 PFSH ED PFSH: Medical History Bipolar 1 disorder Psychiatric care Family History Mother Stroke TIA Bipolar depression Seizure Social History Smoking and tobacco status: never smoked Second hand smoke exposure: No Alcohol intake: never Adopted: No Caregiver/support person: No Lives independently: No Household members: significant other Housing: Manufactured/Mobile home Marital status: Life Partner Number of children: 0 Number of grandchildren: 0 Highest education level completed: High School Graduate service: No Current occupational status: disabled Current occupational exposures/hazards: No Pets and animals: No Leisure activites: music and other Leisure activities details: play dj equipment, tictoc Current gender identity: Male Teena/Moravian: None Agree to transfusion: Yes Financial difficulty paying for basics: Not Very Hard Course Vital Signs: Vital signs: Vital Signs Temperature 97.7 F 09/16/22 10:03 Pulse Rate 97 09/16/22 15:17 Respiratory Rate 14 09/16/22 15:17 Blood Pressure 123/85 09/16/22 15:17 Pulse Oximetry 91 09/16/22 15:17 Oxygen Delivery Me thod 09/16/22 11:11 Oxygen Flow Rate 2 09/16/22 11:11 MDM - Abdominal Pain Medical Decision Making CTA was done given patient's low O2 and chest pain. CTA indicates left lower lobe pneumonia however no change in the abdomen. We will go ahead and treat patient with doxycycline and prednisone at this time. Also will do Mucinex. Likely this is contributing to patient's hypoxia while in the ER. Patient was on 2 L and did fine on 2 L. When he was taken off the 2 L he did well however s oon as he fell asleep he desatted into the upper 80s. Patient is currently undergoing a sleep study and is waiting for a titration study. Discussed with patient he needs to contact his PCP regarding this as it seems to be very important. Patient's liver enzymes did increase over the last [address] does not indicate any changes though. Otherwise take medications as prescribed. Follow-up with PCP in 2 to 3 days. Return to the ER with worsening symptoms. Patient verbalized understanding and was in agreement with the treatment plan. Chart reviewed and patient discussed with midlevel. Agree with assessment and plan. Lab Data 09/16/22 10:08 09/16/22 10:08 Labs/Radiology: Radiology Impressions Chest X-Ray 09/16/22 10:30 IMPRESSION: No acute findings. Chest/Abdomen/Pelvis CT 09/16/22 11:17 IMPRESSION: 1. Negative for pulmonary embolism. 2. Left lower lobe pneumonia 3. Negative for right heart strain 4. Negative for thoracic aortic aneurysm or dissection IMPRESSION: 1. Hepatomegaly and hepatic steatosis. 2. Status post cholecystectomy 3. Negative for abdominal aorta aneurysm or dissection. 4. There is normal mesenteric and renal arteries , Laboratory Results WBC 8.0 10^3/uL (4.0-10.0) 09/16/22 10:08 RBC 4.62 10^6/uL (4.1-5.3) 09/16/22 10:08 Hgb 15.2 g/dL (11.7-16.6) 09/16/22 10:08 Hct 48.9 % (42.0-52.0) 09/16/22 10:08 MCV 105.8 fl (80-94) H 09/16/22 10:08 MCH 32.9 pg (28.0-34.0) 09/16/22 10:08 MCHC 31.1 g/dL (30.0-36.0) 09/16/22 10:08 RDW 13.5 % (12.1-15.1) 09/16/22 10:08 Plt Count 179 10^3/cmm (130-400) 09/16/22 10:08 MPV 10.8 fL (7.4-10.4) H 09/16/22 10:08 Neut % (Auto) 77.0 % 09/16/22 10:08 Lymph % (Auto) 17.8 % 09/16/22 10:08 [place] % (Auto) 3.9 % 09/16/22 10:08 Eos % (Auto) 0.4 % 09/16/22 10:08 Baso % (Auto) 0.4 % 09/16/22 10:08 Neut # (Auto) 6.19 10^3/uL (1.8-7.7) 09/16/22 10:08 Lymph # (Auto) 1.4 10^3/uL (0.8-4.8) 09/16/22 10:08 [place] # (Auto) 0.3 10^3/uL (0.2-0.9) 09/16/22 10:08 Eos # (Auto) 0.0 10^3/uL (0.0-0.8) 09/16/22 10:08 Baso # (Auto) 0.0 10^3/uL (0.0-0.1) 09/16/22 10:08 Nucleated RBC % (auto) 0.2 % 09/16/22 10:08 Nucleated RBCs # 0.0 /100WBC 09/16/22 10:08 Sodium 140 mmol/L (136-145) 09/16/22 10:08 Potassium 4.6 mmol/L (3.5-5.1) 09/16/22 10:08 Chloride 97 mmol/L (98-107) L 09/16/22 10:08 Carbon Dioxide 36 mmol/L (22-29) H 09/16/22 10:08 Anion Gap 11.6 (5-19) 09/16/22 10:08 BUN 13 mg/dL (6-20) 09/16/22 10:08 Creatinine 1.1 mg/dL (0.7-1.2) 09/16/22 10:08 GFR Calculation 85.7 mL/min (90-130) L 09/16/22 10:08 Glucose 139 mg/dL (65-115) H 09/16/22 10:08 Calculated Osmolality 292 mOsm/kg (285-295) 09/16/22 10:08 Lactic Acid 1.1 mmol/L (0.5-2.2) 09/16/22 12:00 Calcium 9.0 mg/dL (8.5-10.5) 09/16/22 10:08 Total Bilirubin 0.2 mg/dL (0.15-1.2) 09/16/22 10:08 AST 84 U/L (0-40) H 09/16/22 10:08 ALT 147 U/L (0-41) H 09/16/22 10:08 Alkaline Phosphatase 70 U/L (40-130) 09/16/22 10:08 Troponin T Gen 5 ng/L 8 ng/L (0-15) 09/16/22 12:00 Total Protein 7.4 g/dL (6.6-8.7) 09/16/22 10:08 Albumin 3.9 g/dL (3.5-5.2) 09/16/22 10:08 Globulin 3.5 g/dL (1.3-4.6) 09/16/22 10:08 Lipase 17 U/L (13-60) 09/16/22 10:08 Urine Color Tiffanie (Yellow) 09/16/22 12:05 Urine Appearance Clear (CLEAR) 09/16/22 12:05 Urine pH 5 (5-7) 09/16/22 12:05 Ur Specific [place] 1.020 (1.005-1.030) 09/16/22 12:05 Urine Protein Neg (Negative) 09/16/22 12:05 Urine Glucose (UA) Norm (Normal) 09/16/22 12:05 Urine Ketones 1+ (Negative) H 09/16/22 12:05 Urine Blood Neg (Negative) 09/16/22 12:05 Urine Nitrate Negative (Negative) 09/16/22 12:05 Urine Bilirubin Neg (Negative) 09/16/22 12:05 Urine Urobilinogen 4 mg/dL (Negative) H 09/16/22 12:05 Ur Leukocyte Esterase Negative (Negative) 09/16/22 12:05 Discharge Plan Discharge Patient Disposition: Home Clinical Impression: Left lower lobe pneumonia Qualifiers: Pneumonia type: due to unspecified organism Qualified Code(s): J18.9 - Pneumonia, unspecified organism Condition: Stable Prescriptions: New Mucinex 600 mg tablet extended release 12hr 600 mg PO BID PRN (Reason: cough/Shortness of breath) 10 Days Qty: 20 0RF doxycycline hyclate 100 mg tablet 100 mg PO BID 10 Days Qty: 20 0RF prednisone 20 mg tablet 40 mg PO DAILY 4 Days Qty: 8 0RF No Action albuterol sulfate 90 mcg/actuation HFA aerosol inhaler 2 puff inhalation Q4H PRN (Reason: Shortness Of Breath) fluticasone propion-salmeterol [Wixela Inhub] 250-50 mcg/dose blister with device 1 inh inhalation BID multivitamin Tablet 1 tab PO QAM ibuprofen 800 mg tablet 800 mg PO Q8H PRN (Reason: pain) Qty: 20 0RF metoclopramide HCl 10 mg tablet 10 mg PO Q6H PRN (Reason: nausea and vomiting) Qty: 20 0RF chlorthalidone 25 mg tablet 25 mg PO QAM Aspir-81 81 mg Tablet,Delayed Release (Dr/Ec) 81 mg PO QAM pantoprazole 20 mg tablet,delayed release (DR/EC) 20 mg PO QAM divalproex 500 mg tablet extended release 24 hr 500 mg PO BID potassium gluconate 595 mg (99 mg) Tablet 595 mg PO QAM Zoloft 50 mg tablet 50 mg PO QAM Discharge Orders: Discharge ED (Routine); Ordered 09/16/22 Ordered By: Lydia Barnhart Referrals: Mann Soto MD [Primary Care Provider] - Discharge Diet: Usual diet Discharge Activity: Increase activity as tolerated Patient Instructions: Opioid Safety, Pain Management Activity Restrictions/Additional Instructions: Take doxycycline and prednisone as prescribed. Take Mucinex until improved. Finish the sleep study work-up as you need to have a thorough discussion with PCP regarding sleep apnea. Follow-up with PCP in 2 to 3 days. Return to the ER with worsening symptoms. Coding Level of Care Code ED Clinical Consultant for Nhung Yu
[2022-09-16 10:27] LABS: Basophils % 0.4 %; Eosinophils % 0.4 %; Hematocrit 48.9 % (42.0-52.0); Hemoglobin 15.2 g/dL (11.7-16.6); Lymphocytes # 1.4 10^3/uL (0.8-4.8); Lymphocytes % 17.8 %; Mean Corpuscular HGB Conc 31.1 g/dL (30.0-36.0); Mean Corpuscular Hemoglobin 32.9 pg (28.0-34.0); Mean Corpuscular Volume 105.8 fl (80-94); Mean Platelet Volume 10.8 fL (7.4-10.4); Monocytes # 0.3 10^3/uL (0.2-0.9); Monocytes % 3.9 %; Neutrophils # 6.19 10^3/uL (1.8-7.7); Nucleated Red Blood Cells % 0.2 %; Platelet Count 179 10^3/cmm (130-400); Red Blood Count 4.62 10^6/uL (4.1-5.3); Red Cell Distribution Width 13.5 % (12.1-15.1)
--- NOTE | 2022-09-16 10:30 | XRR_ITS ---
PROCEDURE INFORMATION: Exam: XR Chest Exam date and time: 09/16/2022 10:47 AM Age: 52 years old Clinical indication: Pain; Angina pectoris; Additional info: Hypoxia, chest pain TECHNIQUE: Imaging protocol: Radiologic exam of the chest. Views: 2 views. COMPARISON: CR (CHEST, ) 09/15/2022 10:55 AM FINDINGS: Lungs: Low lung volumes seen. The lungs are otherwise clear Pleural spaces: Unremarkable. No pleural effusion. No pneumothorax. Heart/Mediastinum: Unremarkable. No cardiomegaly. Bones/joints: Unremarkable. XR/XR chest 2V* [id number] IMPRESSION: No acute findings.
--- NOTE | 2022-09-16 10:57 | ECG_ITS ---
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 Measurements Intervals [place] Rate: 88 P: 21 WA: 174 QRS: -6 QRSD: 90 T: -27 QT: 366 QTc: 444 Interpretive Statements SINUS RHYTHM LEFT VENTRICULAR HYPERTROPHY AND ST-T CHANGE [VOLTAGE CRITERIA PLUS ST/T ABNORMALITY] Compared to ECG 09/15/2022 10:57:41 ST (T wave) deviation now present T-wave abnormality no longer present Electronically Signed On 09-16-2022 19:40:30 CDT by Austin Garner M.D. [email or web address]nox[facility] hospitalBluelightAppmercy memorial hospital.[id number]
[2022-09-16 11:03] LABS: Alanine Aminotransferase 147 U/L (0-41); Albumin Level 3.9 g/dL (3.5-5.2); Alkaline Phosphatase 70 U/L (40-130); Anion Gap 11.6 (5-19); Aspartate Amino Transferase 84 U/L (0-40); Blood Urea Nitrogen 13 mg/dL (6-20); Carbon Dioxide 36 mmol/L (22-29); Chloride 97 mmol/L (98-107); Globulin 3.5 g/dL (1.3-4.6); Glomerular Filtration Rate 85.7 mL/min (90-130); Glucose 139 mg/dL (65-115); Lipase 17 U/L (13-60); Osmolality Calculated 292 mOsm/kg (285-295); Potassium 4.6 mmol/L (3.5-5.1); Sodium 140 mmol/L (136-145); Total Bilirubin 0.2 mg/dL (0.15-1.2); Total Protein 7.4 g/dL (6.6-8.7)
[2022-09-16 11:11] VITALS: BP 123/85; PULSE 97; RESP 14; O2SAT 91
--- NOTE | 2022-09-16 11:17 | CTR_ITS ---
PROCEDURE INFORMATION: Exam: CTA Chest With Contrast Exam date and time: 09/16/2022 12:36 PM Age: 52 years old Clinical indication: Abdominal pain; Radiating; Prior surgery; Surgery type: Hernia; Arleen; Additional info: Hypoxia, chest pain TECHNIQUE: Imaging protocol: Computed tomographic angiography of the chest with contrast. 3D rendering (Not supervised by radiologist): MIP and/or 3D reconstructed images were created by the technologist. Radiation optimization: All CT scans at this facility use at least one of these dose optimization techniques: automated exposure control; mA and/or kV adjustment per patient size (includes targeted exams where dose is matched to clinical indication); or iterative reconstruction. Contrast material: OMNI 350; Contrast volume: 100 ml; Contrast route: INTRAVENOUS (IV); REPORTING DATA: Count of CT and Cardiac NM exams in prior 12 months: This patient has received [address] and 0 known cardiac nuclear medicine studies in the 12 months prior to the current study. COMPARISON: CT angio chest w abd pel w con 09/15/2022 11:37 AM RADIATION DOSE METRICS: Total DLP (mGy-cm): 1965.18 FINDINGS: Pulmonary arteries: Normal. No pulmonary emboli. Aorta: Unremarkable. No aortic aneurysm. No aortic dissection. Lungs: Left lower lobe parenchymal density of possible pneumonia versus atelectasis. No masses. Pleural spaces: Unremarkable. No pneumothorax. No pleural effusion. Heart: Negative for right heart strain No cardiomegaly. No pericardial effusion. Lymph nodes: Unremarkable. No enlarged lymph nodes. Bones/joints: Unremarkable. No acute fracture. Soft tissues: Unremarkable. PROCEDURE INFORMATION: Exam: CT Abdomen And Pelvis With Contrast Exam date and time: 09/16/2022 12:36 PM Age: 52 years old Clinical indication: Abdominal pain; Radiating; Prior surgery; Surgery type: Hernia; Arleen; Additional info: Hypoxia, chest pain TECHNIQUE: Imaging protocol: Computed tomography of the abdomen and pelvis with contrast. Radiation optimization: All CT scans at this facility use at least one of these dose optimization techniques: automated exposure control; mA and/or kV adjustment per patient size (includes targeted exams where dose is matched to clinical indication); or iterative reconstruction. Contrast material: OMNI 350; Contrast volume: 100 ml; Contrast route: INTRAVENOUS (IV); REPORTING DATA: Count of CT and Cardiac NM exams in prior 12 months: This patient has received [address] and 0 known cardiac nuclear medicine studies in the 12 months prior to the current study. COMPARISON: CT angio chest w abd pel w con 09/15/2022 11:37 AM RADIATION DOSE METRICS: Total DLP (mGy-cm): 1965.18 FINDINGS: Liver: Diffuse hepatic lucency is seen consistent with steatosis. No focal hepatic lesions are seen. The liver span is 19.2 cm consistent with hepatomegaly. Gallbladder and bile ducts: There is cholecystectomy Pancreas: Normal. No ductal dilation. Spleen: Normal. No splenomegaly. Adrenal glands: Normal. No mass. Kidneys and ureters: Normal. No hydronephrosis. Stomach and bowel: Unremarkable. No obstruction. No mucosal thickening. Appendix: No evidence of appendicitis. The appendix is not visible Intraperitoneal space: Unremarkable. No free air. No significant fluid collection. Vasculature: Unremarkable. No abdominal aortic aneurysm. Mesenteric vessels and renal vessels are unremarkable the bilateral iliac arteries are normal in appearance. Lymph nodes: Unremarkable. No enlarged lymph nodes. Urinary bladder: Unremarkable as visualized. Reproductive: Unremarkable as visualized. Bones/joints: Unremarkable. No acute fracture. Soft tissues: Unremarkable. CT/CT angio chest w abd pel w con IMPRESSION: 1. Negative for pulmonary embolism. 2. Left lower lobe pneumonia 3. Negative for right heart strain 4. Negative for thoracic aortic aneurysm or dissection IMPRESSION: 1. Hepatomegaly and hepatic steatosis. 2. Status post cholecystectomy 3. Negative for abdominal aorta aneurysm or dissection. 4. There is normal mesenteric and renal arteries ,
--- NOTE | 2022-09-16 11:32 | PC.NURSE ---
PT REFUSING TO WEAR HIS PRESCRIBED OXYGEN STATING THAT IT GIVES HIM A HEADACHE.
[2022-09-16 12:13] LABS: Add Urine Microscopic? NO; Charge for UA Resulting for Rev
[2022-09-16 12:51] LABS: Lactic Sepsis W/Reflex 1.1 mmol/L (0.5-2.2)
[2022-09-16 12:53] LABS: Bilirubin Urine Neg (Negative); Blood Urine Neg (Negative); Glucose Urine UA Norm (Normal); Ketones Urine 1+ (Negative); Leukocyte Esterase Urine Negative (Negative); Nitrate Urine Negative (Negative); Protein Urine Neg (Negative); Urine Appearance Clear (CLEAR); Urine Color Amber (Yellow); Urobilinogen Urine 4 mg/dL (Negative); pH Urine 5 (5-7)
[2022-09-16 12:53] LABS: Troponin T (5th) Once 8 ng/L (0-15)
[2022-09-16] MEDS: iohexol 350 mg/mL 500 mL Btl (per mL) IV (13:42)
--- NOTE | 2022-09-16 14:02 | PC.NURSE ---
PT TESTED ON ROOM AIR. WHILE AWAKE PT MAINTAINS SATURATION AT 92%. WHEN PT FALLS ASLEEP HE DROPS INTO THE 70S/80S. PT STATES HE HAS A SLEEP STUDY SCHEDULED SO HE CAN GET A C-PAP
[2022-09-16 15:17] VITALS: BP 123/85; PULSE 97; RESP 14; O2SAT 91
== END 2022-09-16 15:19 | disposition home or self-care (01) ==
PROVIDERS: Emergency Provider Physician Assistant; PCP Family Medicine
DX: J18.9 Pneumonia, unspecified organism (principal); Z79.82 Long term (current) use of aspirin; K76.0 Fatty (change of) liver, not elsewhere classified
CPT/HCPCS: 36415; 71046; 71275; 74177; 80053; 81003; 83605; 83690; 84484; 85025; 93005; 99285; Q9967

== ENCOUNTER 2022-09-20 20:00 | Outpatient (CLI) | payer MEDICARE, MEDICAID, SELFPAY ==
[2022-08-22 09:38] VITALS: BMI 43.6
== END 2022-09-20 20:01 | disposition home or self-care (01) ==
PROVIDERS: PCP Family Medicine; Visit Provider Family Medicine
DX: G47.33 Obstructive sleep apnea (adult) (pediatric) (principal)
CPT/HCPCS: 95811

== ENCOUNTER 2022-11-03 23:51 | Emergency (ER) | payer MEDICARE, MEDICAID, SELFPAY ==
[2022-10-18 07:34] VITALS: BMI 43.6
[2022-11-03 23:54] VITALS: BP 147/86; PULSE 74; RESP 12; TEMP 36.8; O2SAT 91; BMI 44.4
[2022-11-04 00:21] VITALS: PULSE 80
--- NOTE | 2022-11-04 00:21 | XRR_ITS ---
PROCEDURE INFORMATION: Exam: XR Chest Exam date and time: 11/04/2022 12:26 AM Age: 52 years old Clinical indication: Pain; Chest pressure; Additional info: Cp TECHNIQUE: Imaging protocol: Radiologic exam of the chest. Views: 1 view. COMPARISON: CR XR chest 2V* [id number] 09/16/2022 10:47 AM FINDINGS: Lungs: Unremarkable. No consolidation. Pleural spaces: Unremarkable. No pleural effusion. No pneumothorax. Heart/Mediastinum: Unremarkable. No cardiomegaly. Bones/joints: Unremarkable. XR/XR chest 1V portable [id number] IMPRESSION: No acute findings.
--- NOTE | 2022-11-04 00:26 | W.ED.CHESTPA ---
HPI - Chest Pain General: Chief Complaint: Chest Pain Stated Complaint: NAUSEA Time Seen by Provider: 11/03/22 23:58 Source: patient History of Present Illness: Mr. Collins is a 52-year-old man with a history of diabetes. No prior history of coronary disease. He states that he suddenly became nauseated and had a burning sensation in his throat that awoke him from sleep this evening. This may or may not be related to eating meatballs earlier in the night. He became dizzy with the nausea, and threw up twice at home. Nausea and burning sensation is still present. No shortness of breath. No fever. MD complaint: chest pain Pertinent past history: other Onset (ago): minute(s) Timing of current episode: constant and still present Prior episodes: No Onset: during rest and awoke with symptoms Pain location: substernal and other (Throat) Pain radiation: none Severity: moderate Quality: burning Relieving factors: nothing Associated symptoms: Reports abdominal pain, nausea and vomiting; Deny diaphoresis, dyspnea, fever(s) or syncope Treatment prior to arrival: none Review of Systems Const: Denies: fever(s) or diaphoresis ENMT: Reports: throat pain Card: Reports: chest pain; Denies: syncope Resp: Denies: dyspnea GI: Reports: abdominal pain, nausea and vomiting PFSH ED PFSH: Medical History Bipolar 1 disorder Psychiatric care Family History Mother Stroke TIA Bipolar depression Seizure Social History Smoking and tobacco status: never smoked Second hand smoke exposure: No Alcohol intake: never Substance/Drug Use: never Adopted: No Caregiver/support person: No Lives independently: No Household members: significant other Housing: Manufactured/Mobile home Marital status: Life Partner Number of children: 0 Number of grandchildren: 0 Highest education level completed: High School Graduate service: No Current occupational status: disabled Current occupational exposures/hazards: No Pets and animals: No Leisure activites: music and other Leisure activities details: play dj equipment, tictoc Do you think of yourself as: Lesbian/Smith/Homosexual Current gender identity: Male Teena/Yarsanism: None Agree to transfusion: Yes Financial difficulty paying for basics: Not Very Hard Physical Exam Const: COMMON NORMALS: no acute distress GENERAL APPEARANCE: cooperative; not ill appearing and not frail appearing HENMT: COMMON NORMALS: normocephalic, atraumatic and Normal external nose present HEAD & SCALP: normocephalic and atraumatic FACE & SINUS: normal facial exam and face symmetric NOSE: Normal external nose present Eye: COMMON NORMALS: Equal, round and reactive pupils present and EOMs intact bilaterally PUPIL: Yes Equal, round and reactive pupils present Neck/C-Spine: GENERAL: Yes trachea midline Chest: CHEST: Yes Symmetrical chest wall rise Resp: COMMON NORMALS: normal respiratory effort, No retractions, No use of accessory muscles and clear to auscultation bilaterally AUSCULTATION: clear to auscultation bilaterally Cardio: COMMON NORMALS: regular rate and regular rhythm RATE: regular rate RHYTHM: regular rhythm GI: COMMON NORMALS: Normal to inspection, nondistended, normoactive bowel sounds present PALPATION: Yes Tenderness to palpation present (GI) (Epigastric) Extremity: COMMON NORMALS: no pedal edema Neuro: ALWANDA COMA SCALE: document GCS findings Lawanda coma scale eye opening: Spontaneous [place]anda coma scale verbal response: Orientated [place] coma scale motor response: Obey commands [place] coma scale total score: 15 SENSORY EXAM: Yes extremities (intact) Psych: COMMON NORMALS: speech normal SPEECH: Yes normal speech Skin: COMMON NORMALS: no rashes or lesions noted GENERAL SKIN EXAM: no rashes or lesions noted Course Vital Signs: Vital signs: Vital Signs Temperature 98.2 F 11/03/22 23:54 Pulse Rate 82 11/04/22 02:23 Respiratory Rate 18 11/04/22 02:23 Blood Pressure 147/86 11/04/22 02:23 Pulse Oximetry 89 L 11/04/22 02:23 Oxygen Delivery Me thod Room Air 11/03/22 23:54 MDM - Chest Pain Medical Decision Making Chest x-ray is negative. White blood cell count is 5. Hemoglobin 13. Potassium is 3.2 and is repleted orally. Troponin remain normal at 2 hours. Liver enzymes are normal. BMP otherwise not remarkable. Lipase is 24. Patient maintains that he still has pain. This is despite morphine, Toradol, and GI cocktail. His exam is not impressive. He has a history of cholecystectomy. His EKG shows sinus rhythm with a normal axis. Rate is 75. Intervals are normal. T waves are slightly biphasic likely results of low potassium. He will be allowed discharge home. Lab Data 11/04/22 00:30 11/04/22 00:30 Radiology Impressions Chest X-Ray 11/04/22:21 IMPRESSION: No acute findings. Laboratory Results WBC 5.0 10^3/uL (4.0-10.0) 11/04/22 00:30 RBC 3.95 10^6/uL (4.1-5.3) L 11/04/22:30 Hgb 13.1 g/dL (11.7-16.6) 11/04/22:30 Hct 41.1 % (42.0-52.0) L 11/04/22: MCV 104.1 fl (80-94) H 11/04/22:30 MCH 33.2 pg (28.0-34.0) 11/04/22: MCHC 31.9 g/dL (30.0-36.0) 11/04/22: RDW 13.2 % (12.1-15.1) 11/04/22 00:30 Plt Count 143 10^3/cmm (130-400) 11/04/22:30 MPV 9.9 fL (7.4-10.4) 11/04/22 00:30 Neut % (Auto) 40.6 % 11/04/22 00:30 Lymph % (Auto) 44.6 % 11/04/22 00:30 Roosevelt % (Auto) 11.2 % 11/04/22 00:30 Eos % (Auto) 2.0 % 11/04/22 00:30 Baso % (Auto) 1.0 % 11/04/22 00:30 Neut # (Auto) 2.02 10^3/uL (1.8-7.7) 11/04/22 00:30 Lymph # (Auto) 2.2 10^3/uL (0.8-4.8) 11/04/22 00:30 Roosevelt # (Auto) 0.6 10^3/uL (0.2-0.9) 11/04/22 00:30 Eos # (Auto) 0.1 10^3/uL (0.0-0.8) 11/04/22 00:30 Baso # (Auto) 0.1 10^3/uL (0.0-0.1) 11/04/22 00:30 Nucleated RBC % (auto) 0 % 11/04/22 00:30 Nucleated RBCs # 0.0 /100WBC 11/04/22 00:30 Sodium 139 mmol/L (136-145) 11/04/22 00:30 Potassium 3.2 mmol/L (3.5-5.1) L 11/04/22 00:30 Chloride 100 mmol/L (98-107) 11/04/22 00:30 Carbon Dioxide 28 mmol/L (22-29) 11/04/22 00:30 Anion Gap 14.2 (5-19) 11/04/22 00:30 BUN 10 mg/dL (6-20) 11/04/22 00:30 Creatinine 1.0 mg/dL (0.7-1.2) 11/04/22 00:30 GFR Calculation 95.7 mL/min (90-130) 11/04/22 00:30 Glucose 112 mg/dL (65-115) 11/04/22 00:30 Calculated Osmolality 288 mOsm/kg (285-295) 11/04/22 00:30 Calcium 8.6 mg/dL (8.5-10.5) 11/04/22 00:30 Total Bilirubin 0.2 mg/dL (0.15-1.2) 11/04/22 00:30 AST 22 U/L (0-40) 11/04/22 00:30 ALT 25 U/L (0-41) 11/04/22 00:30 Alkaline Phosphatase 69 U/L (40-130) 11/04/22 00:30 Troponin T Baseline 6 ng/L (0-15) 11/04/22 00:30 Troponin T 120 Minute 6.00 ng/L (0-15) 11/04/22 01:45 Delta Troponin T 0 ABS# (0-10) 11/04/22 01:45 Total Protein 6.2 g/dL (6.6-8.7) L 11/04/22 00:30 Albumin 3.5 g/dL (3.5-5.2) 11/04/22 00:30 Globulin 2.7 g/dL (1.3-4.6) 11/04/22 00:30 Lipase 24 U/L (13-60) 11/04/22 00:30 Discharge Plan Discharge Patient Disposition: Home Clinical Impression: Chest pain Condition: Stable Prescriptions: New sucralfate 1 gram tablet 1 g PO TID 28 Days Qty: 84 0RF No Action albuterol sulfate 90 mcg/actuation HFA aerosol inhaler 2 puff inhalation Q4H PRN (Reason: Shortness Of Breath) fluticasone propion-salmeterol [Wixela Inhub] 250-50 mcg/dose blister with device 1 inh inhalation BID multivitamin Tablet 1 tab PO QAM ibuprofen 800 mg tablet 800 mg PO Q8H PRN (Reason: pain) Qty: 20 0RF metoclopramide HCl 10 mg tablet 10 mg PO Q6H PRN (Reason: nausea and vomiting) Qty: 20 0RF chlorthalidone 25 mg tablet 25 mg PO QAM Aspir-81 81 mg Tablet,Delayed Release (Dr/Ec) 81 mg PO QAM pantoprazole 20 mg tablet,delayed release (DR/EC) 20 mg PO QAM divalproex 500 mg tablet extended release 24 hr 500 mg PO BID potassium gluconate 595 mg (99 mg) Tablet 595 mg PO QAM Zoloft 50 mg tablet 50 mg PO QAM Discharge Orders: Discharge ED (Routine); Ordered 11/04/22 Ordered By: Raymundo Li Referrals: Mann Soto MD [Primary Care Provider] - 1-3 days Patient Instructions: Chest Pain (ED) Activity Restrictions/Additional Instructions: Take the medication prescribed 30 minutes prior to meals. If the pill is too large, you can dissolve it in a small amount of water. Continue your other medications. See your doctor early this coming week. Return for worsening pain despite treatment, fever, worsening shortness of breath, other concerning symptoms. Coding Level of Care Code ED Dye Tub Tender for Nhung Yu
[2022-11-04] MEDS: ondansetron 2 mg/ML SDV 2 mL 4 MG IVP (00:27)
[2022-11-04] MEDS: morphine 4 mg/mL SDV 1 mL IVP (00:27)
[2022-11-04] MEDS: lidocaine 2% viscous 15 ML, aluminum-mag hydrox-simethicon 30 ML, sucralfate oral liq 1 GM PO (00:27)
[2022-11-04 00:41] LABS: Basophils # 0.1 10^3/uL (0.0-0.1); Eosinophils # 0.1 10^3/uL (0.0-0.8); Hematocrit 41.1 % (42.0-52.0); Hemoglobin 13.1 g/dL (11.7-16.6); Lymphocytes # 2.2 10^3/uL (0.8-4.8); Lymphocytes % 44.6 %; Mean Corpuscular HGB Conc 31.9 g/dL (30.0-36.0); Mean Corpuscular Hemoglobin 33.2 pg (28.0-34.0); Mean Corpuscular Volume 104.1 fl (80-94); Mean Platelet Volume 9.9 fL (7.4-10.4); Monocytes # 0.6 10^3/uL (0.2-0.9); Monocytes % 11.2 %; Neutrophils # 2.02 10^3/uL (1.8-7.7); Neutrophils % 40.6 %; Nucleated Red Blood Cells % 0 %; Platelet Count 143 10^3/cmm (130-400); Red Blood Count 3.95 10^6/uL (4.1-5.3); Red Cell Distribution Width 13.2 % (12.1-15.1)
[2022-11-04 01:00] LABS: Troponin(5th) Baseline 6 ng/L (0-15)
[2022-11-04 01:02] LABS: Alanine Aminotransferase 25 U/L (0-41); Albumin Level 3.5 g/dL (3.5-5.2); Alkaline Phosphatase 69 U/L (40-130); Aspartate Amino Transferase 22 U/L (0-40); Blood Urea Nitrogen 10 mg/dL (6-20); Calcium 8.6 mg/dL (8.5-10.5); Carbon Dioxide 28 mmol/L (22-29); Chloride 100 mmol/L (98-107); Globulin 2.7 g/dL (1.3-4.6); Glomerular Filtration Rate 95.7 mL/min (90-130); Glucose 112 mg/dL (65-115); Lipase 24 U/L (13-60); Osmolality Calculated 288 mOsm/kg (285-295); Sodium 139 mmol/L (136-145); Total Bilirubin 0.2 mg/dL (0.15-1.2); Total Protein 6.2 g/dL (6.6-8.7)
[2022-11-04 01:06] LABS: Anion Gap 14.2 (5-19); Potassium 3.2 mmol/L (3.5-5.1)
[2022-11-04] MEDS: potassium chloride ER 20 mEq Tablet 40 MEQ PO (01:20)
[2022-11-04] MEDS: ketorolac 30 mg/mL INJ 15 MG IVP (01:20)
[2022-11-04 02:15] LABS: Troponin 5 2HR Delta 0 ABS# (0-10)
[2022-11-04 02:23] VITALS: BP 147/86; PULSE 82; RESP 18; O2SAT 89
== END 2022-11-04 02:33 | disposition home or self-care (01) ==
PROVIDERS: Emergency Provider Emergency Medicine; PCP Family Medicine
DX: R07.9 Chest pain, unspecified (principal); Z79.82 Long term (current) use of aspirin
CPT/HCPCS: 71045; 80053; 83690; 84484; 85025; 96374; 96375; 99285; J1885; J2270; J2405

== ENCOUNTER 2022-11-06 09:55 | Emergency (ER) | payer MEDICARE, MEDICAID, SELFPAY ==
[2022-10-18 07:34] VITALS: BMI 43.6
[2022-11-06 10:01] VITALS: BP 143/84; PULSE 71; RESP 18; TEMP 36.4; O2SAT 94; BMI 47.2
--- NOTE | 2022-11-06 10:16 | XRR_ITS ---
PROCEDURE INFORMATION: Exam: XR Right Knee Exam date and time: 11/06/2022 10:29 AM Age: 52 years old Clinical indication: Bilateral; Prior surgery; Surgery type: Teja knee; Patient HX: Chronic knee pain no trauma TECHNIQUE: Imaging protocol: Radiologic exam of the right knee. Views: 3 views. COMPARISON: No relevant prior studies available. FINDINGS: Bones/joints: There are mild degenerative changes involving the medial and lateral knee compartments with mild joint space narrowing. Osseous structures are otherwise unremarkable. No fracture, dislocation or malalignment. Soft tissues: There is a small joint effusion. XR/XR knee RT 3V* [id number] IMPRESSION: Mild degenerative changes with small joint effusion.
--- NOTE | 2022-11-06 10:16 | XRR_ITS ---
PROCEDURE INFORMATION: Exam: XR Left Knee Exam date and time: 11/06/2022 10:32 AM Age: 52 years old Clinical indication: Bilateral; Prior surgery; Surgery type: Teja knee; Patient HX: Chronic knee pain no trauma TECHNIQUE: Imaging protocol: Radiologic exam of the left knee. Views: 3 views. COMPARISON: No relevant prior studies available. FINDINGS: Bones/joints: There are moderate degenerative changes involving the medial and lateral knee compartments with joint space narrowing, subchondral sclerosis and mild marginal spurring. There is no fracture, dislocation or malalignment. Soft tissues: There is a small joint effusion. XR/XR knee LT 3V* [id number] IMPRESSION: Moderate degenerative changes with small accompanying joint effusion.
--- NOTE | 2022-11-06 10:41 | W.ED.EXTPRO ---
HPI - Extremity Problem General: Chief complaint: Extremity Problem,Nontraumatic Stated complaint: Knee pains Time Seen by Provider: 11/06/22 10:01 Source: patient Mode of arrival: ambulatory History of Present Illness: 52-year-old male presents emergency room complaints of bilateral knee pain. This been a longstanding problem for him. About 7 to 8 years ago he had bilateral knee arthroscopies. He states that he dances regularly and that seems to aggravated the pain has been worsening he has more difficulty with discomfort with regular activities now. No particular trauma that seems to have aggravated it recently. No previous ligamentous injury or instability that he is aware of. MD Complaint: extremity swelling Onset (ago): year(s) Pain Consistency: constant Location: knee (Bilateral) Quality: aching Radiation: none Relieving factors: nothing Exacerbating factors: weight bearing Associated symptoms: Deny chest pain or fever(s) Review of Systems Const: Denies: fever(s), chills, body aches, change in appetite, fatigue or malaise Card: Denies: chest pain, edema, dyspnea on exertion or orthopnea Resp: Denies: dyspnea, productive cough or non-productive cough Musc: Reports: joint pain; Denies: extremity swelling PFSH ED PFSH: Medical History Bipolar 1 disorder Psychiatric care Family History Mother Stroke TIA Bipolar depression Seizure Social History Smoking and tobacco status: never smoked Second hand smoke exposure: No Alcohol intake: never Substance/Drug Use: never Adopted: No Caregiver/support person: No Lives independently: No Household members: significant other Housing: Manufactured/Mobile home Marital status: Life Partner Number of children: 0 Number of grandchildren: 0 Highest education level completed: High School Graduate service: No Current occupational status: disabled Current occupational exposures/hazards: No Pets and animals: No Leisure activites: music and other Leisure activities details: play dj equipment, tictoc Do you think of yourself as: Lesbian/Smith/Homosexual Current gender identity: Male Teena/Holiness: None Agree to transfusion: Yes Financial difficulty paying for basics: Not Very Hard Physical Exam Const: COMMON NORMALS: no acute distress GENERAL APPEARANCE: cooperative and comfortable ORIENTATION/CONSCIOUSNESS: Yes awake, Yes oriented to person, Yes oriented to place and Yes oriented to time HENMT: COMMON NORMALS: normocephalic, atraumatic and hearing grossly normal bilaterally HEAD & SCALP: normocephalic and atraumatic Resp: COMMON NORMALS: normal respiratory effort, No retractions, No use of accessory muscles and clear to auscultation bilaterally AUSCULTATION: clear to auscultation bilaterally Cardio: COMMON NORMALS: regular rate, regular rhythm and No murmurs present (Cardio) RATE: regular rate RHYTHM: regular rhythm Extremity: COMMON NORMALS: normal to inspection, capillary refill normal, no clubbing, cyanosis or edema, no calf tenderness and no pedal edema OTHER: Bilateral examination of the knees mild chronic joint effusion no ligamentous instability or laxity drawer and Naseem tests are negative. Neuro: SENSORIUM/ORIENTATION: Yes oriented to person, Yes oriented to place and Yes oriented to time Skin: COMMON NORMALS: no rashes or lesions noted GENERAL SKIN EXAM: no rashes or lesions noted Course Vital Signs: Vital signs: Vital Signs Temperature 97.5 F L 11/06/22 10:01 Pulse Rate 71 11/06/22 10:01 Respiratory Rate 18 11/06/22 10:01 Blood Pressure 143/84 11/06/22 10:01 Pulse Oximetry 94 11/06/22 10:01 Oxygen Delivery Me thod Room Air 11/06/22 10:01 MDM - Extremity (Nontraumatic) Medical Decision Making Reviewed x-rays independently. Narrowing of the joints bilaterally no significant arthritic changes. We will discharge patient home refer to orthopedic. At this point having not found any ligamentous injury on exam we did not set up for MRI. I did start him on diclofenac And stop the ibuprofen. Medical Records I reviewed the patient's medical records. Lab Data I reviewed the patient's lab results. Discharge Plan Discharge Patient Disposition: Home Clinical Impression: Chronic pain of both knees Condition: Stable Prescriptions: New diclofenac sodium 75 mg tablet,delayed release (DR/EC) 75 mg PO Q12H PRN (Reason: pain) Qty: 20 0RF No Action albuterol sulfate 90 mcg/actuation HFA aerosol inhaler 2 puff inhalation Q4H PRN (Reason: Shortness Of Breath) fluticasone propion-salmeterol [Wixela Inhub] 250-50 mcg/dose blister with device 1 inh inhalation BID multivitamin Tablet 1 tab PO QAM ibuprofen 800 mg tablet 800 mg PO Q8H PRN (Reason: pain) Qty: 20 0RF metoclopramide HCl 10 mg tablet 10 mg PO Q6H PRN (Reason: nausea and vomiting) Qty: 20 0RF chlorthalidone 25 mg tablet 25 mg PO QAM Aspir-81 81 mg Tablet,Delayed Release (Dr/Ec) 81 mg PO QAM pantoprazole 20 mg tablet,delayed release (DR/EC) 20 mg PO QAM divalproex 500 mg tablet extended release 24 hr 500 mg PO BID potassium gluconate 595 mg (99 mg) Tablet 595 mg PO QAM Zoloft 50 mg tablet 50 mg PO QAM sucralfate 1 gram tablet 1 g PO TID 28 Days Qty: 84 0RF Discharge Orders: Discharge ED (Routine); Ordered 11/06/22 Ordered By: Dallin Jordan Referrals: Mann Soto MD [Primary Care Provider] - Discharge Diet: Usual diet Discharge Activity: Increase activity as tolerated Patient Instructions: Opioid Safety, Pain Management Activity Restrictions/Additional Instructions: You are seen today for chronic bilateral knee pain. There is no acute findings on your x-ray. Recommend he stop the ibuprofen use diclofenac 1 pill twice daily. And will make arrangements for you to follow-up with the orthopedic clinic. Coding Level of Care Code ED Tile And Mottle Supervisor for Nhung Yu
[2022-11-06] MEDS: ketorolac 30 mg/mL INJ 60 MG IM (10:58)
== END 2022-11-06 11:01 | disposition home or self-care (01) ==
PROVIDERS: Emergency Provider Family Medicine; PCP Family Medicine
DX: G89.29 Other chronic pain (principal); M25.562 Pain in left knee; M25.561 Pain in right knee; Z79.82 Long term (current) use of aspirin
CPT/HCPCS: 73562; 96372; 99284; J1885

== ENCOUNTER → 2023-06-24 15:29 | Outpatient (BNVA) | payer OTHER, SELFPAY ==
[2023-04-29 07:43] VITALS: BMI 43.6
== END ==
PROVIDERS: PCP Family Medicine; Visit Provider Psychiatry & Neurology Psychiatry
DX: F31.9 Bipolar disorder, unspecified (principal); Z79.899 Other long term (current) drug therapy
CPT/HCPCS: 80061; 83036

== ENCOUNTER 2023-09-08 11:07 | Emergency (ER) | payer MEDICARE, MEDICAID, SELFPAY ==
[2023-07-05 11:51] VITALS: BP 136/97; BMI 41.5
[2023-09-08 11:10] VITALS: BP 132/84; PULSE 80; TEMP 36.7; O2SAT 98; BMI 40.1
--- NOTE | 2023-09-08 11:10 | XRR_ITS ---
PROCEDURE INFORMATION: Exam: XR Chest Exam date and time: 09/08/2023 11:27 AM Age: 53 years old Clinical indication: Other: Syncope TECHNIQUE: Imaging protocol: Radiologic exam of the chest. Views: 1 view. COMPARISON: CR XR chest 1V portable [id number] 11/04/2022 12:26 AM FINDINGS: Lungs: Unremarkable. No consolidation. Pleural spaces: Unremarkable. No pleural effusion. No pneumothorax. Heart/Mediastinum: Unremarkable. No cardiomegaly. Vasculature: Unfolding of the thoracic aorta. Bones/joints: Mild degenerative disease of the left acromioclavicular joint. XR/XR chest 1V portable [id number] IMPRESSION: No acute cardiopulmonary process.
--- NOTE | 2023-09-08 11:11 | ECG_ITS ---
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 Measurements Intervals [place] Rate: 81 P: 65 AR: 176 QRS: 25 QRSD: 99 T: -28 QT: 388 QTc: 452 Interpretive Statements SINUS RHYTHM NONSPECIFIC T-WAVE ABNORMALITY Compared to ECG 09/16/2022 10:57:56 T-wave abnormality now present Left ventricular hypertrophy no longer present ST (T wave) deviation no longer present Electronically Signed On 09-09-2023 8:49:06 TAG METER OPERATOR by Shaq Meng M.D. [id number]
[2023-09-08 11:22] VITALS: BP 132/84; PULSE 83; RESP 14; O2SAT 98
--- NOTE | 2023-09-08 11:22 | CTR_ITS ---
PROCEDURE INFORMATION: Exam: CT Abdomen And Pelvis With Contrast Exam date and time: 09/08/2023 12:18 PM Age: 53 years old Clinical indication: Abdominal pain; Generalized; Prior surgery; Surgery date: 6+ months; Surgery type: Gb, hernia; Additional info: Abd pain TECHNIQUE: Imaging protocol: Computed tomography of the abdomen and pelvis with contrast. Axial, coronal and sagittal reformatted images were created and reviewed. Radiation optimization: All CT scans at this facility use at least one of these dose optimization techniques: automated exposure control; mA and/or kV adjustment per patient size (includes targeted exams where dose is matched to clinical indication); or iterative reconstruction. Contrast material: OMNI 350; Contrast volume: 100 ml; Contrast route: INTRAVENOUS (IV); COMPARISON: CT angio chest w abd pel w con 09/16/2022 12:36 PM RADIATION DOSE METRICS: Total DLP (mGy-cm): 1333.23 FINDINGS: Diaphragm: Elevated left hemidiaphragm. Liver: Diffuse hepatic steatosis. Gallbladder and bile ducts: Status post cholecystectomy. No biliary ductal dilatation. Pancreas: Unremarkable. Spleen: Unremarkable. Adrenal glands: Normal. No mass. Kidneys and ureters: No mass. No radiodense calculi. No hydronephrosis. Stomach and bowel: No bowel wall thickening. No obstruction. No pneumatosis. Appendix: Normal. Intraperitoneal space: No free fluid. No organized fluid collection. No free air. Vasculature: Unremarkable. No aneurysm. Lymph nodes: No pathologically enlarged lymph nodes. Urinary bladder: Unremarkable as visualized. Reproductive: Unremarkable. Bones/joints: No acute osseous abnormality. Mild degenerative changes. Soft tissues: Small, fat containing inguinal hernias. CT/CT abdomen pelvis w con* [id number]: 1[address] evidence of acute intra-abdominal or pelvic pathology. 2. Additional findings, as above.
[2023-09-08 11:23] LABS: Basophils # 0.1 10^3/uL (0.0-0.1); Basophils % 0.7 %; Eosinophils # 0.1 10^3/uL (0.0-0.8); Eosinophils % 1.2 %; Hematocrit 41.5 % (37-53); Lymphocytes % 32.4 %; Mean Corpuscular HGB Conc 33.5 g/dL (30-55); Mean Corpuscular Hemoglobin 32.8 pg (27-33); Mean Corpuscular Volume 97.9 fl (82-101); Mean Platelet Volume 10.6 fL (7.4-10.4); Monocytes # 0.8 10^3/uL (0.2-0.9); Monocytes % 8.2 %; Neutrophils # 5.24 10^3/uL (1.8-7.7); Neutrophils % 57.1 %; Nucleated Red Blood Cells % 0 %; Platelet Count 201 10^3/cmm (157-399); Red Blood Count 4.24 10^6/uL (3.85-5.65); Red Cell Distribution Width 13.2 % (12.1-15.1); White Blood Count 9.17 10^3/uL (3.29-11.43)
--- NOTE | 2023-09-08 11:23 | CTR_ITS ---
PROCEDURE INFORMATION: Exam: CT Head Without Contrast Exam date and time: 09/08/2023 12:14 PM Age: 53 years old Clinical indication: Syncope and collapse TECHNIQUE: Imaging protocol: Computed tomography of the head without contrast. Radiation optimization: All CT scans at this facility use at least one of these dose optimization techniques: automated exposure control; mA and/or kV adjustment per patient size (includes targeted exams where dose is matched to clinical indication); or iterative reconstruction. COMPARISON: No relevant prior studies available. RADIATION DOSE METRICS: Total DLP (mGy-cm): 1109.68 FINDINGS: Brain: Normal. No hemorrhage. Unremarkable white matter. No mass effect. Cerebral ventricles: No ventriculomegaly. Paranasal sinuses: There is mild mucosal disease of the left maxillary sinus and frothy secretions of bilateral sphenoid sinuses. Mastoid air cells: Visualized mastoid air cells are well aerated. Bones/joints: Unremarkable. No acute fracture. Soft tissues: Unremarkable. CT/CT head wo con* [id number] IMPRESSION: No large territorial infarct or intracranial bleed.
--- NOTE | 2023-09-08 11:23 | ED_ITS ---
HPI - Syncope 2 General: Chief Complaint: Syncope Stated Complaint: SYNCOPE; ABD PAIN Time Seen by Provider: 09/08/23 11:10 Source: patient and EMS Mode of arrival: EMS Limitations: no limitations History of Present Illness: 53-year-old male states he is at religious today states that over the last 2 days he has not been feeling real well states he had a slight cough with some fatigue and his been having some abdominal pain as well he went to the bathroom and states he either passed out or had a seizure. He does have a history of seizures he is unsure how long he had passed out for he is now awake and alert he denies headache denies chest pain he had no vomiting or diarrhea Associated symptoms: Reports abdominal pain; Deny chest pain, fever(s), headache(s) or nausea Review of Systems 2 Const: Denies: fever(s), chills, body aches or change in appetite ENMT: Denies: throat pain or dental pain Card: Reports: syncope; Denies: chest pain Resp: Reports: non-productive cough; Denies: dyspnea GI: Reports: abdominal pain; Denies: nausea, vomiting or diarrhea : Denies: dysuria Musc: Denies: neck pain or back pain Skin/Breast: Denies: rash Neuro: Denies: headache(s) PFSH ED 2 PFSH: Medical History Psychiatric care Bipolar 1 disorder Family History Mother Stroke TIA Bipolar depression Seizure Social History Smoking and tobacco/nicotine status: never used tobacco/nicotine Second hand smoke exposure: Yes Alcohol intake: never Substance/Drug Use: never Adopted: No Caregiver/support person: No Lives independently: No Household members: significant other Housing: Manufactured/Mobile home Marital status: Life Partner Number of children: 0 Number of grandchildren: 0 Highest education level completed: High School Graduate service: No Current occupational status: disabled Current occupational exposures/hazards: No Pets and animals: No Leisure activites: music and other Leisure activities details: play dj equipment, tictoc client likes to dancr Do you think of yourself as: Lesbian/Smith/Homosexual Current gender identity: Male Teena/Tenriism: Caodaism Special teena needs: No Agree to transfusion: No Physical Exam 2 Const: COMMON NORMALS: no acute distress, patient oriented x3 and healthy appearing HENMT: COMMON NORMALS: normocephalic and atraumatic HEAD & SCALP: n ormocephalic and atraumatic Neck/C-Spine: COMMON NORMALS: full ROM and supple Chest: COMMONS NORMALS: normal inspection of the chest Resp: COMMON NORMALS: normal respiratory effort, No retractions, No use of accessory muscles and clear to auscultation bilaterally AUSCULTATION: clear to auscultation bilaterally Cardio: COMMON NORMALS: regular rate, regular rhythm and No murmurs present (Cardio) RATE: regular rate RHYTHM: regular rhythm GI: COMMON NORMALS: Normal to inspection, nondistended, normoactive bowel sounds present, Soft to palpation and no masses PALPATION: Yes Soft to palpation OTHER: epigastric tenderness Extremity: COMMON NORMALS: normal to inspection and full ROM Neuro: COMMON NORMALS: patient oriented x3, moves all extremities and no focal motor deficits Psych: COMMON NORMALS: mental status grossly normal, Normal thought process present and cooperative THOUGHT PROCESS: Normal thought process present Skin: COMMON NORMALS: no rashes or lesions noted and no wounds GENERAL SKIN EXAM: no rashes or lesions noted Course 2 Vital Signs: Vital signs: Vital Signs Temperature 98.0 F 09/08/23 11:10 Pulse Rate 76 09/08/23 13:46 Respiratory Rate 18 09/08/23 13:46 Blood Pressure 127/60 09/08/23 13:46 Pulse Oximetry 96 09/08/23 13:46 Oxygen Delivery Me thod Room Air 09/08/23 11:22 MDM - Syncope Medical Decision Making He patient presents here after a syncopal event versus a seizure he has been well-appearing here he had some abdominal pain all of his imaging and blood work is normal he stable for discharge she is to follow-up with PCP and return if worsening. Medical Records I reviewed the patient's medical records. Lab Data I reviewed the patient's lab results. 09/08/23 10:58 09/08/23 11:35 Radiology Impressions Chest X-Ray 09/08/23 11:10 IMPRESSION: No acute cardiopulmonary process. Abdomen/Pelvis CT 09/08/23 11:22 IMPRESSION: 1. No CT evidence of acute intra-abdominal or pelvic pathology. 2. Additional findings, as above. Head CT 09/08/23 11:23 IMPRESSION: No large territorial infarct or intracranial bleed. Laboratory Results WBC 9.17 10^3/uL (3.29-11.43) 09/08/23 10:58 RBC 4.24 10^6/uL (3.85-5.65) 09/08/23 10:58 Hgb 13.90 g/dL (11.27-16.99) 09/08/23 10:58 Hct 41.5 % (37-53) 09/08/23 10:58 MCV 97.9 fl (82-101) 09/08/23 10:58 MCH 32.8 pg (27-33) 09/08/23 10:58 MCHC 33.5 g/dL (30-55) 09/08/23 10:58 RDW 13.2 % (12.1-15.1) 09/08/23 10:58 Plt Count 201 10^3/cmm (157-399) 09/08/23 10:58 MPV 10.6 fL (7.4-10.4) H 09/08/23 10:58 Neut % (Auto) 57.1 % 09/08/23 10:58 Lymph % (Auto) 32.4 % 09/08/23 10:58 [place] % (Auto) 8.2 % 09/08/23 10:58 Eos % (Auto) 1.2 % 09/08/23 10:58 Baso % (Auto) 0.7 % 09/08/23 10:58 Neut # (Auto) 5.24 10^3/uL (1.8-7.7) 09/08/23 10:58 Lymph # (Auto) 3.0 10^3/uL (0.8-4.8) 09/08/23 10:58 [place] # (Auto) 0.8 10^3/uL (0.2-0.9) 09/08/23 10:58 Eos # (Auto) 0.1 10^3/uL (0.0-0.8) 09/08/23 10:58 Baso # (Auto) 0.1 10^3/uL (0.0-0.1) 09/08/23 10:58 Nucleated RBC % (auto) 0 % 09/08/23 10:58 Nucleated RBCs # 0.0 /100WBC 09/08/23 10:58 Sodium 136 mmol/L (136-145) 09/08/23 11:35 Potassium 3.3 mmol/L (3.5-5.1) L 09/08/23 11:35 Chloride 99 mmol/L (98-107) 09/08/23 11:35 Carbon Dioxide 31 mmol/L (22-29) H 09/08/23 11:35 Anion Gap 9.3 (5-19) 09/08/23 11:35 BUN 13 mg/dL (6-20) 09/08/23 11:35 Creatinine 1.0 mg/dL (0.7-1.2) 09/08/23 11:35 GFR Calculation 95.3 mL/min (90-130) 09/08/23 11:35 Glucose 143 mg/dL (65-115) H 09/08/23 11:35 POC Glucose 141 mg/dL (70-110) H 09/08/23 11:52 Calculated Osmolality 285 mOsm/kg (285-295) 09/08/23 11:35 Calcium 8.5 mg/dL (8.5-10.5) 09/08/23 11:35 Total Bilirubin 0.2 mg/dL (0.15-1.2) 09/08/23 11:35 AST 13 U/L (0-40) 09/08/23 11:35 ALT 12 U/L (0-41) 09/08/23 11:35 Alkaline Phosphatase 59 U/L (40-130) 09/08/23 11:35 Troponin T Baseline 7 ng/L (0-15) 09/08/23 12:04 Total Protein 6.5 g/dL (6.6-8.7) L 09/08/23 11:35 Albumin 3.6 g/dL (3.5-5.2) 09/08/23 11:35 Globulin 2.9 g/dL (1.3-4.6) 09/08/23 11:35 Lipase 23 U/L (13-60) 09/08/23 11:35 Influenza Type A Ag negative (Negative) 09/08/23 11:29 Influenza Type B Ag negative (Negative) 09/08/23 11:29 SARS-CoV-2 Ag (Rapid) negative (Negative) 09/08/23 11:29 All radiology interpretation(s) finalized by discharge EKG Data EKG 1: I personally reviewed and interpreted this EKG as follows: EKG interpretation date: 09/08/23 EKG interpretation time: 11:17 Interpretation: nsr hr [address] or t wave abnormalities qrs 99 qtc 425 Discharge Plan Discharge Patient Disposition: Home Clinical Impression: Syncope, Abdominal pain Condition: Stable Prescriptions: New ondansetron 4 mg tablet,disintegrating 4 mg PO Q6H PRN (Reason: nausea and vomiting) Qty: 14 0RF No Action Ozempic 0.25 mg or 0.5 mg (2 mg/3 mL) pen injector SUBCUT .Weekly sertraline [Zoloft] 100 mg tablet 200 mg PO DAILY Qty: 60 2RF albuterol sulfate 90 mcg/actuation HFA aerosol inhaler 2 puff inhalation Q4H PRN (Reason: Shortness Of Breath) fluticasone propion-salmeterol [Wixela Inhub] 250-50 mcg/dose blister with device 1 inh inhalation BID multivitamin Tablet 1 tab PO QAM ibuprofen 800 mg tablet 800 mg PO Q8H PRN (Reason: pain) Qty: 20 0RF metoclopramide HCl 10 mg tablet 10 mg PO Q6H PRN (Reason: nausea and vomiting) Qty: 20 0RF chlorthalidone 25 mg tablet 25 mg PO QAM pantoprazole 20 mg tablet,delayed release (DR/EC) 20 mg PO QAM divalproex 500 mg tablet extended release 24 hr 500 mg PO BID potassium gluconate 595 mg (99 mg) Tablet 595 mg PO QAM diclofenac sodium 75 mg tablet,delayed release (DR/EC) 75 mg PO Q12H PRN (Reason: pain) Qty: 20 0RF Discharge Orders: Discharge ED (Routine); Ordered 09/08/23 Ordered By: Yeimy Gilliam Referrals: Mann Soto MD [Primary Care Provider] - 4-7 days Discharge Diet: Advance as tolerated Discharge Activity: Resume usual activity Patient Instructions: Syncope (ED), Abdominal Pain (ED) Coding Level of Care Code ED Staffing Operations Manager for Chg Gigi
[2023-09-08 11:52] LABS: Influenza A by IFA negative (Negative); Influenza B by IFA negative (Negative); SARS Covid-2 Antigen negative (Negative)
[2023-09-08 11:55] LABS: Glucose Point of Care 141 mg/dL (70-110)
[2023-09-08] MEDS: sodium chloride 0.9% 1,000 ML 999 ML IV (12:11)
[2023-09-08] MEDS: iohexol 350 mg/mL 500 mL Btl (per mL) IV (12:19)
[2023-09-08 12:24] LABS: Alanine Aminotransferase 12 U/L (0-41); Albumin Level 3.6 g/dL (3.5-5.2); Alkaline Phosphatase 59 U/L (40-130); Anion Gap 9.3 (5-19); Aspartate Amino Transferase 13 U/L (0-40); Blood Urea Nitrogen 13 mg/dL (6-20); Calcium 8.5 mg/dL (8.5-10.5); Carbon Dioxide 31 mmol/L (22-29); Chloride 99 mmol/L (98-107); Creatinine Clr Calc Pharmacy 116.9391; Globulin 2.9 g/dL (1.3-4.6); Glomerular Filtration Rate 95.3 mL/min (90-130); Glucose 143 mg/dL (65-115); Lipase 23 U/L (13-60); Osmolality Calculated 285 mOsm/kg (285-295); Potassium 3.3 mmol/L (3.5-5.1); Sodium 136 mmol/L (136-145); Total Bilirubin 0.2 mg/dL (0.15-1.2); Total Protein 6.5 g/dL (6.6-8.7)
--- NOTE | 2023-09-08 12:46 | ECG_ITS ---
[facility] Test Date: 2023-09-08 Pat Name: Ayleen Collins Department: Room: Gender: Male Inpatient Services Rn: : 1970 Requested By: Yeimy Gilliam Order Number: [id number] lEliott MD: Shaq Meng M.D. Measurements Intervals [place] Rate: 76 P: 49 DE: 167 QRS: 30 QRSD: 92 T: -26 QT: 382 QTc: 431 Interpretive Statements SINUS RHYTHM NONSPECIFIC T-WAVE ABNORMALITY Compared to ECG 09/08/2023 11:17:21 No significant changes Electronically Signed On 09-09-2023 8:48:37 EXPEDITION SUPERVISOR by Shaq Meng M.D. [id number] f
[2023-09-08 13:10] LABS: Troponin(5th) Baseline 7 ng/L (0-15)
[2023-09-08 13:46] VITALS: BP 127/60; PULSE 76; RESP 18; O2SAT 96
== END 2023-09-08 13:45 | disposition home or self-care (01) ==
PROVIDERS: Emergency Provider Emergency Medicine; PCP Family Medicine
DX: R55 Syncope and collapse (principal); Z11.52 Encounter for screening for COVID-19; R10.9 Unspecified abdominal pain
CPT/HCPCS: 36415; 36416; 70450; 71045; 74177; 80053; 82962; 83690; 84484; 85025; 87426; 87804; 93005; 96360; 99285; J7030; Q9967

== ENCOUNTER 2023-09-08 22:27 | Emergency (ER) | payer MEDICARE, MEDICAID, SELFPAY ==
[2023-07-05 11:51] VITALS: BP 136/97; BMI 41.5
[2023-09-08 22:34] VITALS: BP 120/91; PULSE 89; RESP 16; O2SAT 96; BMI 41.5
[2023-09-08 22:39] VITALS: BP 120/91; PULSE 81; RESP 17; O2SAT 96
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
--- NOTE | 2023-09-08 22:47 | ECG_ITS ---
[facility] Test Date: 2023-09-08 Pat Name: Ayleen Collins Department: Room: Gender: Male Geologist: : 1970 Requested By: Chidi Mallory Order Number: [id number] Elliott MD: Shaq Meng M.D. Measurements Intervals [place] Rate: 81 P: 27 [place]: 169 QRS: 12 QRSD: 85 T: -2 QT: 381 QTc: 445 Interpretive Statements SINUS RHYTHM NONSPECIFIC T-WAVE ABNORMALITY Compared to ECG 09/08/2023 12:44:03 No significant changes Electronically Signed On 09-09-2023 8:47:12 OPTICAL FABRICATION TECHNICIAN by Shaq Meng M.D. [email or web address]/NU/[id number] f
[2023-09-08 23:22] LABS: Basophils % 0.7 %; Eosinophils # 0.2 10^3/uL (0.0-0.8); Eosinophils % 2.6 %; Hematocrit 37.8 % (37-53); Lymphocytes # 1.9 10^3/uL (0.8-4.8); Lymphocytes % 30.3 %; Mean Corpuscular HGB Conc 33.3 g/dL (30-55); Mean Corpuscular Hemoglobin 32.9 pg (27-33); Mean Corpuscular Volume 98.7 fl (82-101); Mean Platelet Volume 9.7 fL (7.4-10.4); Monocytes # 0.4 10^3/uL (0.2-0.9); Monocytes % 6.2 %; Neutrophils # 3.67 10^3/uL (1.8-7.7); Neutrophils % 59.9 %; Nucleated Red Blood Cells % 0 %; Platelet Count 182 10^3/cmm (157-399); Red Blood Count 3.83 10^6/uL (3.85-5.65); Red Cell Distribution Width 13.3 % (12.1-15.1); White Blood Count 6.13 10^3/uL (3.29-11.43)
[2023-09-08 23:42] LABS: Troponin(5th) Baseline 7 ng/L (0-15)
[2023-09-08 23:55] LABS: Alanine Aminotransferase 11 U/L (0-41); Albumin Level 3.5 g/dL (3.5-5.2); Alkaline Phosphatase 75 U/L (40-130); Anion Gap 11.4 (5-19); Aspartate Amino Transferase 10 U/L (0-40); Blood Urea Nitrogen 14 mg/dL (6-20); Calcium 8.2 mg/dL (8.5-10.5); Carbon Dioxide 33 mmol/L (22-29); Chloride 102 mmol/L (98-107); Creatinine Clr Calc Pharmacy 108.3472; Globulin 2.7 g/dL (1.3-4.6); Glomerular Filtration Rate 85.4 mL/min (90-130); Glucose 129 mg/dL (65-115); NT Pro B Type Natriuretic Pept < 36 pg/mL (0-125); Osmolality Calculated 298 mOsm/kg (285-295); Potassium 3.4 mmol/L (3.5-5.1); Sodium 143 mmol/L (136-145); Total Bilirubin 0.2 mg/dL (0.15-1.2); Total Protein 6.2 g/dL (6.6-8.7)
--- NOTE | 2023-09-08 23:57 | PC.NURSE ---
pt reporting around 2330 he started feeling like I'm gonna have a seizure , pt reports he feels shaking prior to seizures and he is feeling that currently. Provider notified an Ativan to be given.
[2023-09-09 00:06] LABS: Valproic Acid Level 42.6 ug/mL (50-100)
[2023-09-09] MEDS: LORazepam 2 mg/mL INJ 10 mL MDV 1 MG IM (00:32)
[2023-09-09 00:39] VITALS: BP 106/81; PULSE 83; RESP 17; O2SAT 99
[2023-09-09 01:26] VITALS: BP 106/81; PULSE 83; RESP 17; O2SAT 99
--- NOTE | 2023-09-09 09:51 | DCPLANNER ---
A message was sent to neurology on 09/09/23 at 0972. [facility] to contact patient for appt.
== END 2023-09-09 01:28 | disposition home or self-care (01) ==
PROVIDERS: Emergency Provider Nurse Practitioner Family; PCP Family Medicine
DX: G40.909 Epilepsy, unspecified, not intractable, without status epilepticus (principal); F07.81 Postconcussional syndrome
CPT/HCPCS: 36415; 80053; 80164; 83880; 84484; 85025; 93005; 96372; 99284; J2060

== ENCOUNTER 2023-09-11 09:56 | Emergency (ER) | payer MEDICARE, MEDICAID, SELFPAY ==
[2023-07-05 11:51] VITALS: BP 136/97; BMI 41.5
[2023-09-11 10:18] VITALS: BP 136/80; PULSE 76; RESP 18; TEMP 36.7; O2SAT 96; BMI 41.5
[2023-09-11 10:25] LABS: Glucose Point of Care 85 mg/dL (70-110)
--- NOTE | 2023-09-11 10:26 | ED_ITS ---
HPI - Seizure 2 General: Chief Complaint: Seizure Stated Complaint: Numbness/Weakness / headache Time Seen by Provider: 09/11/23 10:20 Source: patient Mode of arrival: ambulatory Limitations: no limitations History of Present Illness: HPI Narrative: 53-year-old male has had a history of se izures states he had a seizure today that lasted seconds he is awake alert he has no complaints he is on Keppra at home. He does see a neurologist she denies any headache denies hitting his head denies any recent fevers. Associated symptoms: Deny chest pain, chills or fever(s) Review of Systems 2 Const: Denies: fever(s), chills, body aches or change in appetite Eyes: Denies: blurry vision or eye discomfort ENMT: Denies: throat pain or dental pain Card: Denies: chest pain Resp: Denies: dyspnea GI: Denies: abdominal pain, nausea, vomiting or diarrhea Musc: Denies: neck pain or back pain Skin/Breast: Denies: rash Neuro: Reports: seizure-like activity; Denies: headache(s) PFSH ED 2 PFSH: Medical History Psychiatric care Bipolar 1 disorder Family History Mother Stroke TIA Bipolar depression Seizure Social History Smoking and tobacco/nicotine status: never used tobacco/nicotine Second hand smoke exposure: Yes Alcohol intake: never Substance/Drug Use: never Adopted: No Caregiver/support person: No Lives independently: No Household members: significant other Housing: Manufactured/Mobile home Marital status: Life Partner Number of children: 0 Number of grandchildren: 0 Highest education level completed: High School Graduate service: No Current occupational status: disabled Current occupational exposures/hazards: No Pets and animals: No Leisure activites: music and other Leisure activities details: play dj equipment, tictoc client likes to dancr Do you think of yourself as: Lesbian/Smith/Homosexual Current gender identity: Male Teena/Adventist: Holiness Special teena needs: No Agree to transfusion: No Physical Exam 2 Const: COMMON NORMALS: no acute distress, patient oriented x3 and healthy appearing HENMT: COMMON NORMALS: normocephalic and atraumatic HEAD & SCALP: n ormocephalic and atraumatic Neck/C-Spine: COMMON NORMALS: full ROM and supple Chest: COMMONS NORMALS: normal inspection of the chest Resp: COMMON NORMALS: normal respiratory effort, No retractions, No use of accessory muscles and clear to auscultation bilaterally AUSCULTATION: clear to auscultation bilaterally Cardio: COMMON NORMALS: regular rate, regular rhythm and No murmurs present (Cardio) RATE: regular rate RHYTHM: regular rhythm Extremity: COMMON NORMALS: normal to inspection and full ROM Neuro: COMMON NORMALS: patient oriented x3, moves all extremities and no focal motor deficits Psych: COMMON NORMALS: mental status grossly normal, Normal thought process present and cooperative THOUGHT PROCESS: Normal thought process present Skin: COMMON NORMALS: no rashes or lesions noted and no wounds GENERAL SKIN EXAM: no rashes or lesions noted Course 2 Vital Signs: Vital signs: Vital Signs Temperature 98.1 F 09/11/23 10:18 Pulse Rate 76 09/11/23 10:18 Respiratory Rate 18 09/11/23 10:18 Blood Pressure 136/80 09/11/23 10:18 Pulse Oximetry 96 09/11/23 10:18 Oxygen Delivery Me thod Room Air 09/11/23 10:18 MDM - Seizure MDM Narrative Medical decision making narrative: Patient presents here with a likely seizure he is well-appearing here is electrolytes are normal he had no head injury he is stable for discharge and loading with Keppra he is to follow-up with his neurologist. Medical Records Attestation: I reviewed the patient's medical records. Lab Data Attestation: I reviewed the patient's lab results. 09/11/23 10:41 Labs: Laboratory Results Sodium 139 mmol/L (136-145) 09/11/23 10:41 Potassium 3.5 mmol/L (3.5-5.1) 09/11/23 10:41 Chloride 100 mmol/L (98-107) 09/11/23 10:41 Carbon Dioxide 29 mmol/L (22-29) 09/11/23 10:41 Anion Gap 13.5 (5-19) 09/11/23 10:41 BUN 14 mg/dL (6-20) 09/11/23 10:41 Creatinine 0.9 mg/dL (0.7-1.2) 09/11/23 10:41 GFR Calculation 107.6 mL/min (90-130) 09/11/23 10:41 Glucose 88 mg/dL (65-115) 09/11/23 10:41 POC Glucose 85 mg/dL (70-110) 09/11/23 10:18 Calculated Osmolality 288 mOsm/kg (285-295) 09/11/23 10:41 Calcium 8.3 mg/dL (8.5-10.5) L 09/11/23 10:41 Valproic Acid 46.1 ug/mL (50-100) L 09/11/23 10:41 No radiology studies performed this visit Discharge Plan Discharge Patient Disposition: Home Clinical Impression: Seizure disorder Condition: Stable Prescriptions: No Action Ozempic 0.25 mg or 0.5 mg (2 mg/3 mL) pen injector 0.5 mg SUBCUT .Weekly sertraline [Zoloft] 100 mg tablet 200 mg PO DAILY Qty: 60 2RF albuterol sulfate 90 mcg/actuation HFA aerosol inhaler 2 puff inhalation Q4H PRN (Reason: Shortness Of Breath) fluticasone propion-salmeterol [Wixela Inhub] 250-50 mcg/dose blister with device 1 inh inhalation BID multivitamin Tablet 1 tab PO QAM ibuprofen 800 mg tablet 800 mg PO Q8H PRN (Reason: pain) Qty: 20 0RF metoclopramide HCl 10 mg tablet 10 mg PO Q6H PRN (Reason: nausea and vomiting) Qty: 20 0RF chlorthalidone 25 mg tablet 25 mg PO QAM pantoprazole 20 mg tablet,delayed release (DR/EC) 20 mg PO QAM divalproex 500 mg tablet extended release 24 hr 500 mg PO BID potassium gluconate 595 mg (99 mg) Tablet 595 mg PO QAM diclofenac sodium 75 mg tablet,delayed release (DR/EC) 75 mg PO Q12H PRN (Reason: pain) Qty: 20 0RF ondansetron 4 mg tablet,disintegrating 4 mg PO Q6H PRN (Reason: nausea and vomiting) Qty: 14 0RF levetiracetam 500 mg tablet 500 mg PO BID Discharge Orders: Discharge ED (Routine); Ordered 03/06/24 Ordered By: Yeimy Gilliam Referrals: Mann Soto MD [Primary Care Provider] - 4-7 days Discharge Diet: Advance as tolerated Discharge Activity: Resume usual activity Patient Instructions: Recurrent Seizures in Adults (ED) Coding Level of Care Code ED Cyber Reverse Engineer for Nhung Yu
[2023-09-11] MEDS: levETIRAcetam 750 MG in sodium chloride 0.9% (100 ml) 100 ML 430 MG IV (10:36)
[2023-09-11 11:08] LABS: Anion Gap 13.5 (5-19); Blood Urea Nitrogen 14 mg/dL (6-20); Calcium 8.3 mg/dL (8.5-10.5); Carbon Dioxide 29 mmol/L (22-29); Chloride 100 mmol/L (98-107); Creatinine Clr Calc Pharmacy 132.4243; Glomerular Filtration Rate 107.6 mL/min (90-130); Glucose 88 mg/dL (65-115); Osmolality Calculated 288 mOsm/kg (285-295); Potassium 3.5 mmol/L (3.5-5.1); Sodium 139 mmol/L (136-145); Valproic Acid Level 46.1 ug/mL (50-100)
== END 2023-09-11 11:28 | disposition home or self-care (01) ==
PROVIDERS: Emergency Provider Emergency Medicine; PCP Family Medicine
DX: G40.909 Epilepsy, unspecified, not intractable, without status epilepticus (principal); Z79.85 Long-term (current) use of injectable non-insulin antidiabetic drugs; Z77.22 Contact with and (suspected) exposure to environmental tobacco smoke (acute) (chronic)
CPT/HCPCS: 36416; 80048; 80164; 82962; 96374; 99284; J1953

== ENCOUNTER 2023-10-21 12:29 | Outpatient (CLI) | payer MEDICARE, MEDICAID, SELFPAY ==
[2023-07-05 11:51] VITALS: BP 136/97; BMI 41.5
[2023-10-17 10:12] VITALS: BP 136/97; BMI 41.5
--- NOTE | 2023-10-21 13:45 | MR_ITS ---
WS: [id number] MRI BRAIN WITH AND WITHOUT CONTRAST HISTORY: G40.909 - Epilepsy, unspecified, not intractable, without... COMPARISON: CT head 09/08/2023 TECHNIQUE: Multiplanar imaging performed through the brain with MultiHance 20 ml's IV. Seizure protoc ol. No acute infarcts are seen. Martinez-white matter differentiation is well preserved. There are a few T2 a nd FLAIR signal hyperintensities in the subcortical supratentorial white matter from small vessel isc hemic disease most likely. No mass effect or midline shift. No ependymal nodules. Normal hippocampal formations. No susceptibility artifacts or prior lacunar infarcts. Ventricles and extra-axial spaces are normal. Clivus and pituitary gland are normal. Visualized posterior fossa and brainstem are also normal. Postcontrast images are negative for masses or vascular malformations. Dural venous sinuses are normal. Paranasal sinuses: Small mucous retention cysts in the maxillary sinuses. Mastoid air cells: Normal. Calvarium and scalp: Normal. IMPRESSION: 1. No diffusion abnormalities. 2. Mild FLAIR signal abnormalities in the subcortical supratentorial white matter. This can be seen with migraines, small vessel ischemic disease, hypertension and smoking. 3. Normal hippocampal formations. 4. No mass.
[2023-10-21] MEDS: gadobenate dimeglumine 20 mL vial IV (13:51)
== END 2023-10-21 12:30 | disposition home or self-care (01) ==
LOC: RAD 12:30
PROVIDERS: PCP Family Medicine; Visit Provider Psychiatry & Neurology Neurology
DX: G40.909 Epilepsy, unspecified, not intractable, without status epilepticus (principal)
CPT/HCPCS: 70553; A9577

== ENCOUNTER 2023-11-09 22:48 | Emergency (ER) | payer MEDICARE, MEDICAID, SELFPAY ==
[2023-10-17 10:12] VITALS: BP 136/97; BMI 41.5
[2023-11-09 23:00] VITALS: BP 110/72; PULSE 75; RESP 17; TEMP 36.6; O2SAT 95; BMI 38.7
--- NOTE | 2023-11-09 23:15 | ECG_ITS ---
[facility] Test Date: 2023-11-09 Pat Name: Ayleen Collins Department: Room: Gender: Male Mobility Developer: : 1970 Requested By: Raymundo Larson Order Number: [id number] Elliott MD: Shaq Meng M.D. Measurements Intervals [place] Rate: 76 P: -20 OR: 156 QRS: 6 QRSD: 89 T: 3 QT: 393 QTc: 443 Interpretive Statements SINUS RHYTHM POSSIBLE RIGHT VENTRICULAR CONDUCTION DELAY [RSR (QR) IN V1/V2] NONSPECIFIC T-WAVE ABNORMALITY Compared to ECG 09/08/2023 22:47:11 No significant changes Electronically Signed On 11-10-2023 12:03:00 CDT by Shaq Meng M.D. [id number]
[2023-11-10 02:26] LABS: Glucose Point of Care 89 mg/dL (70-110)
[2023-11-10 02:33] LABS: Basophils % 1.2 %; Eosinophils # 0.1 10^3/uL (0.0-0.8); Eosinophils % 1.5 %; Hematocrit 41.2 % (37-53); Lymphocytes # 2.1 10^3/uL (0.8-4.8); Lymphocytes % 60.8 %; Mean Corpuscular HGB Conc 32.8 g/dL (30-55); Mean Corpuscular Hemoglobin 32.4 pg (27-33); Mean Corpuscular Volume 98.8 fl (82-101); Mean Platelet Volume 9.7 fL (7.4-10.4); Monocytes # 0.4 10^3/uL (0.2-0.9); Monocytes % 10.9 %; Neutrophils % 25.3 %; Nucleated Red Blood Cells % 0 %; Platelet Count 139 10^3/cmm (157-399); Red Blood Count 4.17 10^6/uL (3.85-5.65); Red Cell Distribution Width 13.3 % (12.1-15.1); White Blood Count 3.39 10^3/uL (3.29-11.43)
[2023-11-10 02:38] LABS: Add Urine Microscopic? NO; Charge for UA Resulting for Rev
[2023-11-10 02:40] LABS: Bilirubin Urine 1+ (Negative); Blood Urine Neg (Negative); Glucose Urine UA Norm (Normal); Ketones Urine Negative (Negative); Leukocyte Esterase Urine Negative (Negative); Nitrate Urine Negative (Negative); Protein Urine Neg (Negative); Specific Gravity, Urine 1.005 (1.005-1.030); Urine Appearance Clear (CLEAR); Urine Color Dark Yellow (Yellow); Urobilinogen Urine 8 mg/dL (Negative); pH Urine 7 (5-7)
[2023-11-10 02:49] LABS: Amphetamines Screen Urine Negative (Negative); Barbiturates Screen Urine Negative (Negative); Benzodiazepines Screen Urine Negative (Negative); Cocaine Screen Urine Negative (Negative); Opiate Screen Urine Negative (Negative); PCP Screen Urine Negative (Negative); THC Screen Urine Negative (Negative)
[2023-11-10 02:53] LABS: Alanine Aminotransferase 28 U/L (0-41); Albumin Level 3.6 g/dL (3.5-5.2); Alkaline Phosphatase 73 U/L (40-130); Anion Gap 10.9 (5-19); Aspartate Amino Transferase 21 U/L (0-40); Blood Urea Nitrogen 11 mg/dL (6-20); Calcium 9.4 mg/dL (8.5-10.5); Carbon Dioxide 31 mmol/L (22-29); Chloride 106 mmol/L (98-107); Creatine Phosphokinase 103 U/L (39-308); Creatinine Clr Calc Pharmacy 114.6963; Glomerular Filtration Rate 95.3 mL/min (90-130); Glucose 98 mg/dL (65-115); Magnesium 1.9 mg/dL (1.7-2.3); Osmolality Calculated 297 mOsm/kg (285-295); Phosphorus 3.6 mg/dL (2.5-4.5); Potassium 3.9 mmol/L (3.5-5.1); Sodium 144 mmol/L (136-145); Total Bilirubin 0.3 mg/dL (0.15-1.2); Total Protein 6.6 g/dL (6.6-8.7)
[2023-11-10 03:05] LABS: Alcohol Level < 10 mg/dL (0-10)
[2023-11-10 03:06] LABS: Neutrophils # 0.86 10^3/uL (1.8-7.7)
--- NOTE | 2023-11-10 03:22 | ED_ITS ---
HPI - Seizure 2 General: Chief Complaint: Seizure Stated Complaint: Back,arm pain Time Seen by Provider: 11/10/23 01:12 History of Present Illness: HPI Narrative: 53 year old gentleman with a history of seizure evidently. He presents with continued dizziness, headache, and generalized weakness, with some paresthesias to the upper and lower extremities following two seizures yesterday. He notes that the seizures he experienced yesterday were more intense than his normal seizures. He is leaving for [place] on Saturday, to move, and wanted to be checked out prior to this to make sure he was OK. He is on valproic acid as well as Keppra for his seizures. And he had an MRI last week, ordered by his neurologist, but has not heard the results. Seizure History: Yes PFSH ED 2 PFSH: Medical History Psychiatric care Bipolar 1 disorder Family History Mother Stroke TIA Bipolar depression Seizure Social History Smoking and tobacco/nicotine status: never used tobacco/nicotine Second hand smoke exposure: Yes Alcohol intake: never Substance/Drug Use: never Adopted: No Caregiver/support person: No Lives independently: No Household members: significant other Housing: Manufactured/Mobile home Marital status: Life Partner Number of children: 0 Number of grandchildren: 0 Highest education level completed: High School Graduate service: No Current occupational status: disabled Current occupational exposures/hazards: No Pets and animals: No Leisure activites: music and other Leisure activities details: play dj equipment, tictoc client likes to dancr Do you think of yourself as: Lesbian/Smith/Homosexual Current gender identity: Male Teena/Hinduism: Advent Special teena needs: No Agree to transfusion: No Course 2 Vital Signs: Vital signs: Vital Signs Temperature 97.8 F 11/09/23 23:00 Pulse Rate 67 11/10/23 03:52 Respiratory Rate 17 11/09/23 23:00 Blood Pressure 117/81 11/10/23 03:52 Pulse Oximetry 95 11/10/23 03:52 Oxygen Delivery Me thod Room Air 11/10/23 03:49 MDM - Seizure MDM Narrative Medical decision making narrative: His vitals were quite stable here. He has no focal neurologic findings. Laboratory data shows a platelet count of 139. White blood cell count of 3.4 with a mild reduction in neutrophil count of 0.86. Your analysis and your drug screen are negative. Outside alcohol is negative. CMP is not remarkable. MRI from last week of the head shows some microvascular changes, but is otherwise negative. He was informed of this and reassured by it. Mild neutropenia could be from the valproate. This will need to be rechecked. He'll be discharged period to return for repeated episodes of seizure or worsening symptoms otherwise. Outpatient follow-up encouraged. Lab Data 11/10/23 02:25 11/10/23 02:25 Labs: Laboratory Results WBC 3.39 10^3/uL (3.29-11.43) 11/10/23 02:25 RBC 4.17 10^6/uL (3.85-5.65) 11/10/23 02:25 Hgb 13.50 g/dL (11.27-16.99) 11/10/23 02:25 Hct 41.2 % (37-53) 11/10/23 02:25 MCV 98.8 fl (82-101) 11/10/23 02:25 MCH 32.4 pg (27-33) 11/10/23 02:25 MCHC 32.8 g/dL (30-55) 11/10/23 02:25 RDW 13.3 % (12.1-15.1) 11/10/23 02:25 Plt Count 139 10^3/cmm (157-399) L 11/10/23 02:25 MPV 9.7 fL (7.4-10.4) 11/10/23 02:25 Neut % (Auto) 25.3 % 11/10/23 02:25 Lymph % (Auto) 60.8 % 11/10/23 02:25 [place] % (Auto) 10.9 % 11/10/23 02:25 Eos % (Auto) 1.5 % 11/10/23 02:25 Baso % (Auto) 1.2 % 11/10/23 02:25 Neut # (Auto) 0.86 10^3/uL (1.8-7.7) L* 11/10/23 02:25 Lymph # (Auto) 2.1 10^3/uL (0.8-4.8) 11/10/23 02:25 [place] # (Auto) 0.4 10^3/uL (0.2-0.9) 11/10/23 02:25 Eos # (Auto) 0.1 10^3/uL (0.0-0.8) 11/10/23 02:25 Baso # (Auto) 0.0 10^3/uL (0.0-0.1) 11/10/23 02:25 Nucleated RBC % (auto) 0 % 11/10/23 02:25 Nucleated RBCs # 0.0 /100WBC 11/10/23 02:25 Sodium 144 mmol/L (136-145) 11/10/23 02:25 Potassium 3.9 mmol/L (3.5-5.1) 11/10/23 02:25 Chloride 106 mmol/L (98-107) 11/10/23 02:25 Carbon Dioxide 31 mmol/L (22-29) H 11/10/23 02:25 Anion Gap 10.9 (5-19) 11/10/23 02:25 BUN 11 mg/dL (6-20) 11/10/23 02:25 Creatinine 1.0 mg/dL (0.7-1.2) 11/10/23 02:25 GFR Calculation 95.3 mL/min (90-130) 11/10/23 02:25 Glucose 98 mg/dL (65-115) 11/10/23 02:25 POC Glucose 89 mg/dL (70-110) 11/10/23 02:22 Calculated Osmolality 297 mOsm/kg (285-295) H 11/10/23 02:25 Calcium 9.4 mg/dL (8.5-10.5) 11/10/23 02:25 Phosphorus 3.6 mg/dL (2.5-4.5) 11/10/23 02:25 Magnesium 1.9 mg/dL (1.7-2.3) 11/10/23 02:25 Total Bilirubin 0.3 mg/dL (0.15-1.2) 11/10/23 02:25 AST 21 U/L (0-40) 11/10/23 02:25 ALT 28 U/L (0-41) 11/10/23 02:25 Alkaline Phosphatase 73 U/L (40-130) 11/10/23 02:25 Creatine Kinase 103 U/L (39-308) 11/10/23 02:25 Total Protein 6.6 g/dL (6.6-8.7) 11/10/23 02:25 Albumin 3.6 g/dL (3.5-5.2) 11/10/23 02:25 Globulin 3.0 g/dL (1.3-4.6) 11/10/23 02:25 Urine Color Dark yellow (Yellow) 11/10/23 02:28 Urine Appearance Clear (CLEAR) 11/10/23 02:28 Urine pH 7 (5-7) 11/10/23 02:28 Ur Specific [place] 1.005 (1.005-1.030) 11/10/23 02:28 Urine Protein Neg (Negative) 11/10/23 02:28 Urine Glucose (UA) Norm (Normal) 11/10/23 02:28 Urine Ketones Negative (Negative) 11/10/23 02:28 Urine Blood Neg (Negative) 11/10/23 02:28 Urine Nitrate Negative (Negative) 11/10/23 02:28 Urine Bilirubin 1+ (Negative) H 11/10/23 02:28 Urine Urobilinogen 8 mg/dL (Negative) H 11/10/23 02:28 Ur Leukocyte Esterase Negative (Negative) 11/10/23 02:28 Urine Opiates Screen Negative ng/mL (Negative) 11/10/23 02:28 Ur Barbiturates Screen Negative ng/mL (Negative) 11/10/23 02:28 Ur Phencyclidine Scrn Negative ng/mL (Negative) 11/10/23 02:28 Ur Amphetamines Screen Negative ng/mL (Negative) 11/10/23 02:28 U Benzodiazepines Scrn Negative ng/mL (Negative) 11/10/23 02:28 Urine Cocaine Screen Negative ng/mL (Negative) 11/10/23 02:28 U Marijuana (THC) Screen Negative ng/mL (Negative) 11/10/23 02:28 Ethyl Alcohol < 10 mg/dL (0-10) 11/10/23 02:25 All radiology interpretation(s) finalized by discharge Discharge Plan Discharge Patient Disposition: Home Clinical Impression: Generalized seizure, Neutropenia Condition: Stable Prescriptions: No Action Ozempic 0.25 mg or 0.5 mg (2 mg/3 mL) pen injector 0.5 mg SUBCUT .Weekly albuterol sulfate 90 mcg/actuation HFA aerosol inhaler 2 puff inhalation Q4H PRN (Reason: Shortness Of Breath) fluticasone propion-salmeterol [Wixela Inhub] 250-50 mcg/dose blister with device 1 inh inhalation BID multivitamin Tablet 1 tab PO QAM sertraline [Zoloft] 100 mg tablet 200 mg PO DAILY Qty: 60 2RF trazodone 50 mg tablet 100 mg PO .HS PRN (Reason: insomnia) Qty: 60 2RF ibuprofen 800 mg tablet 800 mg PO Q8H PRN (Reason: pain) Qty: 20 0RF metoclopramide HCl 10 mg tablet 10 mg PO Q6H PRN (Reason: nausea and vomiting) Qty: 20 0RF chlorthalidone 25 mg tablet 25 mg PO QAM pantoprazole 20 mg tablet,delayed release (DR/EC) 20 mg PO QAM divalproex 500 mg tablet extended release 24 hr 500 mg PO BID potassium gluconate 595 mg (99 mg) Tablet 595 mg PO QAM diclofenac sodium 75 mg tablet,delayed release (DR/EC) 75 mg PO Q12H PRN (Reason: pain) Qty: 20 0RF ondansetron 4 mg tablet,disintegrating 4 mg PO Q6H PRN (Reason: nausea and vomiting) Qty: 14 0RF levetiracetam 500 mg tablet 500 mg PO BID Discharge Orders: Discharge ED (Routine); Ordered 11/10/23 Ordered By: Raymundo Li Referrals: Mann Soto MD [Primary Care Provider] - Patient Instructions: Neutropenia (ED), Recurrent Seizures in Adults (ED), Opioid Safety, Pain Management Activity Restrictions/Additional Instructions: Return for repeated episodes of seizure, mental status changes, fever, any other concerning symptoms. Monitor your temperature closely, twice daily. The MRI you had done on your head last week did not show significant problems. You should have your blood redrawn in 1 week's time to check your blood count again, as one of your white blood cell counts was low. Coding Level of Care Code ED Licensing Director for Nhung Yu
[2023-11-10 03:49] VITALS: BP 117/81; PULSE 67; O2SAT 95
[2023-11-10 03:52] VITALS: BP 117/81; PULSE 67; O2SAT 95
== END 2023-11-10 03:45 | disposition home or self-care (01) ==
PROVIDERS: Emergency Provider Emergency Medicine; PCP Family Medicine
DX: G40.409 Other generalized epilepsy and epileptic syndromes, not intractable, without status epilepticus (principal); Z77.22 Contact with and (suspected) exposure to environmental tobacco smoke (acute) (chronic); D70.9 Neutropenia, unspecified; Z79.85 Long-term (current) use of injectable non-insulin antidiabetic drugs
CPT/HCPCS: 36416; 80053; 80306; 80307; 81003; 82550; 82962; 83735; 84100; 85025; 93005; 99284

== ENCOUNTER 2023-11-10 22:48 | Emergency (ER) | payer MEDICARE, MEDICAID, SELFPAY ==
[2023-10-17 10:12] VITALS: BP 136/97; BMI 41.5
[2023-11-10 23:09] VITALS: BP 160/96; PULSE 74; RESP 18; TEMP 36.6; O2SAT 99; BMI 38.7
--- NOTE | 2023-11-10 23:50 | ECG_ITS ---
[facility] Test Date: 2023-11-10 Pat Name: Ayleen Collins Department: Room: Gender: Male Credit Relationship Manager: : 1970 Requested By: Raymundo Larson Order Number: [id number] Elliott MD: Shaq Meng M.D. Measurements Intervals [place] Rate: 63 P: 10 SD: 139 QRS: 0 QRSD: 105 T: -30 QT: 394 QTc: 405 Interpretive Statements SINUS RHYTHM POSSIBLE RIGHT VENTRICULAR CONDUCTION DELAY [RSR (QR) IN V1/V2] VOLTAGE CRITERIA FOR LVH [MEETS CRITERIA IN ONE OF: R(aVL), S(V1), R(V5), R(V5/V6)+S(V1)] NONSPECIFIC T-WAVE ABNORMALITY Compared to ECG 11/09/2023 23:15:57 Left ventricular hypertrophy now present T-wave abnormality still present Electronically Signed On 11-11-2023 10:55:25 CDT by Shaq Meng M.D. [id number]
[2023-11-11] MEDS: levETIRAcetam 1,000 MG/100 ML PREMIX 400 MG IV (00:16)
[2023-11-11] MEDS: LORazepam 2 mg/mL INJ 10 mL MDV IVP (00:17)
[2023-11-11 00:24] LABS: Add Urine Microscopic? NO; Charge for UA Resulting for Rev
[2023-11-11 00:28] LABS: Bilirubin Urine Neg (Negative); Blood Urine Neg (Negative); Glucose Urine UA Norm (Normal); Ketones Urine 1+ (Negative); Leukocyte Esterase Urine Negative (Negative); Nitrate Urine Negative (Negative); Protein Urine Neg (Negative); Urine Appearance Clear (CLEAR); Urine Color Yellow (Yellow); Urobilinogen Urine 4 mg/dL (Negative); pH Urine 6 (5-7)
[2023-11-11 00:30] LABS: Basophils # 0.1 10^3/uL (0.0-0.1); Basophils % 1.5 %; Eosinophils # 0.1 10^3/uL (0.0-0.8); Eosinophils % 1.9 %; Hematocrit 40.8 % (37-53); Lymphocytes # 1.6 10^3/uL (0.8-4.8); Lymphocytes % 50.5 %; Mean Corpuscular HGB Conc 33.3 g/dL (30-55); Mean Corpuscular Hemoglobin 32.7 pg (27-33); Mean Corpuscular Volume 98.1 fl (82-101); Monocytes # 0.4 10^3/uL (0.2-0.9); Monocytes % 12.4 %; Neutrophils # 1.09 10^3/uL (1.8-7.7); Neutrophils % 33.7 %; Nucleated Red Blood Cells % 0 %; Platelet Count 142 10^3/cmm (157-399); Red Blood Count 4.16 10^6/uL (3.85-5.65); Red Cell Distribution Width 13.2 % (12.1-15.1); White Blood Count 3.23 10^3/uL (3.29-11.43)
[2023-11-11 00:45] LABS: Valproic Acid Level 41.4 ug/mL (50-100)
[2023-11-11 00:46] LABS: Alanine Aminotransferase 28 U/L (0-41); Albumin Level 3.9 g/dL (3.5-5.2); Alkaline Phosphatase 50 U/L (40-130); Anion Gap 13.9 (5-19); Aspartate Amino Transferase 20 U/L (0-40); Blood Urea Nitrogen 15 mg/dL (6-20); Calcium 9.3 mg/dL (8.5-10.5); Carbon Dioxide 29 mmol/L (22-29); Chloride 105 mmol/L (98-107); Creatine Phosphokinase 102 U/L (39-308); Creatinine Clr Calc Pharmacy 114.6963; Globulin 2.7 g/dL (1.3-4.6); Glomerular Filtration Rate 95.3 mL/min (90-130); Glucose 94 mg/dL (65-115); Magnesium 1.7 mg/dL (1.7-2.3); Osmolality Calculated 299 mOsm/kg (285-295); Phosphorus 2.8 mg/dL (2.5-4.5); Potassium 3.9 mmol/L (3.5-5.1); Sodium 144 mmol/L (136-145); Total Bilirubin 0.5 mg/dL (0.15-1.2); Total Protein 6.6 g/dL (6.6-8.7)
[2023-11-11 00:47] LABS: Alcohol Level < 10 mg/dL (0-10)
[2023-11-11 01:00] VITALS: BP 132/99; PULSE 86; RESP 17; O2SAT 94
--- NOTE | 2023-11-11 01:06 | PC.NURSE ---
This typewriter repairer was made aware of concerns from friends that pt may be having suicidal thoughts. Chetna and Ariella(may not be her name) have been receiving texts from pt making statements like don't worry about me anymore , the friends would be texting to make sure pt was ok with no response from pt and then when they would say ok I'll leave you alone then pt would text back. Friends are scare and concerned enough that they are requesting to sign a 96hr hold for suicidal thoughts. This typewriter repairer is unable to speak with pt about these concerns as he has received medications that have made him sedated. This finding has been passed on to Eveline MORLEY and Dr. Li for further evaluation.
--- NOTE | 2023-11-11 01:25 | ED_ITS ---
HPI - Seizure 2 General: Chief Complaint: Seizure Stated Complaint: Siezure Time Seen by Provider: 11/10/23 23:27 History of Present Illness: HPI Narrative: 53-year-old male gentleman seen last nig at a similar time for pseudoseizure. He returns tonight after a couple more pseudoseizure type episodes this evening. He evidently had 1 in the lobby of the ER. He notes that his seizures are stress related, and he has been exceptionally stressed because he is moving tomorrow back to [place]. His friends are worried about him, because he seems stressed about this and does not want to move back. He notes that with the stressful instances, his seizures tend to be worse. He has also not been taking his seizure medication for the last 3 days or so. Seizure History: Yes Place: Home Associated symptoms: Deny chest pain, chills, confusion or fever(s) Review of Systems 2 Const: Denies: fever(s), chills or body aches Eyes: Denies: change in vision Card: Denies: chest pain or palpitations Resp: Denies: dyspnea, productive cough, non-productive cough or wheezing GI: Denies: abdominal pain, nausea, vomiting, diarrhea or hematochezia Skin/Breast: Denies: rash Neuro: Reports: headache(s), dizziness, Slurred speech present and seizure- like activity; Denies: weakness in extremities or confusion PFSH ED 2 PFSH: Medical History Psychiatric care Bipolar 1 disorder Family History Mother Stroke TIA Bipolar depression Seizure Social History Smoking and tobacco/nicotine status: never used tobacco/nicotine Second hand smoke exposure: Yes Alcohol intake: never Substance/Drug Use: never Adopted: No Caregiver/support person: No Lives independently: No Household members: significant other Housing: Manufactured/Mobile home Marital status: Life Partner Number of children: 0 Number of grandchildren: 0 Highest education level completed: High School Graduate service: No Current occupational status: disabled Current occupational exposures/hazards: No Pets and animals: No Leisure activites: music and other Leisure activities details: play dj equipment, tictoc client likes to dancr Do you think of yourself as: Lesbian/Smith/Homosexual Current gender identity: Male Teena/Yarsanism: Pentecostalism Special teena needs: No Agree to transfusion: No Physical Exam 2 Const: COMMON NORMALS: no acute distress GENERAL APPEARANCE: cooperative; not ill appearing and not frail appearing HENMT: COMMON NORMALS: normocephalic, atraumatic and Normal external nose present HEAD & SCALP: normocephalic and atraumatic FACE & SINUS: normal facial exam and face symmetric NOSE: Normal external nose present Eye: COMMON NORMALS: Equal, round and reactive pupils present and EOMs intact bilaterally PUPIL: Yes Equal, round and reactive pupils present Neck/C-Spine: GENERAL: Yes trachea midline Chest: CHEST: Yes Symmetrical chest wall rise Resp: COMMON NORMALS: normal respiratory effort, No retractions, No use of accessory muscles and clear to auscultation bilaterally AUSCULTATION: clear to auscultation bilaterally Cardio: COMMON NORMALS: regular rate and regular rhythm RATE: regular rate RHYTHM: regular rhythm GI: COMMON NORMALS: Normal to inspection, nondistended, normoactive bowel sounds present Extremity: COMMON NORMALS: no pedal edema Neuro: LAWANDA COMA SCALE: document GCS findings Lawanda coma scale eye opening: Spontaneous [place] coma scale verbal response: Orientated [place] coma scale motor response: Obey commands [place] coma scale total score: 15 S ENSORY EXAM: Yes extremities (intact) Psych: COMMON NORMALS: speech normal SPEECH: Yes normal speech Skin: COMMON NORMALS: no rashes or lesions noted GENERAL SKIN EXAM: no rashes or lesions noted Course 2 Vital Signs: Vital signs: Vital Signs Temperature 97.9 F 11/10/23 23:09 Pulse Rate 78 11/11/23 02:06 Respiratory Rate 18 11/11/23 02:06 Blood Pressure 135/94 11/11/23 02:06 Pulse Oximetry 100 11/11/23 02:06 Oxygen Delivery Me thod Nasal Cannula 11/11/23 01:00 Oxygen Flow Rate 2 11/11/23 01:00 MDM - Seizure MDM Narrative Medical decision making narrative: No repeated episodes of seizure here since his initial evaluation. His vitals are stable. He was given Ativan, and loaded with Keppra. Ativan was to prevent pseudoseizure while in the ER, and Keppra was to load him as he has not had his Keppra in a couple of days. His laboratory is not remarkable. His neutrophil count has come up since yesterday. He is not intoxicated. Lab Data 11/11/23 00:10 11/11/23 00:10 Labs: Laboratory Results WBC 3.23 10^3/uL (3.29-11.43) L 11/11/23 00:10 RBC 4.16 10^6/uL (3.85-5.65) 11/11/23 00:10 Hgb 13.60 g/dL (11.27-16.99) 11/11/23 00:10 Hct 40.8 % (37-53) 11/11/23 00:10 MCV 98.1 fl (82-101) 11/11/23 00:10 MCH 32.7 pg (27-33) 11/11/23 00:10 MCHC 33.3 g/dL (30-55) 11/11/23 00:10 RDW 13.2 % (12.1-15.1) 11/11/23 00:10 Plt Count 142 10^3/cmm (157-399) L 11/11/23 00:10 MPV 10.0 fL (7.4-10.4) 11/11/23 00:10 Neut % (Auto) 33.7 % 11/11/23 00:10 Lymph % (Auto) 50.5 % 11/11/23 00:10 [place] % (Auto) 12.4 % 11/11/23 00:10 Eos % (Auto) 1.9 % 11/11/23 00:10 Baso % (Auto) 1.5 % 11/11/23 00:10 Neut # (Auto) 1.09 10^3/uL (1.8-7.7) L 11/11/23 00:10 Lymph # (Auto) 1.6 10^3/uL (0.8-4.8) 11/11/23 00:10 Castro # (Auto) 0.4 10^3/uL (0.2-0.9) 11/11/23 00:10 Eos # (Auto) 0.1 10^3/uL (0.0-0.8) 11/11/23 00:10 Baso # (Auto) 0.1 10^3/uL (0.0-0.1) 11/11/23 00:10 Nucleated RBC % (auto) 0 % 11/11/23 00:10 Nucleated RBCs # 0.0 /100WBC 11/11/23 00:10 Sodium 144 mmol/L (136-145) 11/11/23 00:10 Potassium 3.9 mmol/L (3.5-5.1) 11/11/23 00:10 Chloride 105 mmol/L (98-107) 11/11/23 00:10 Carbon Dioxide 29 mmol/L (22-29) 11/11/23 00:10 Anion Gap 13.9 (5-19) 11/11/23 00:10 BUN 15 mg/dL (6-20) 11/11/23 00:10 Creatinine 1.0 mg/dL (0.7-1.2) 11/11/23 00:10 GFR Calculation 95.3 mL/min (90-130) 11/11/23 00:10 Glucose 94 mg/dL (65-115) 11/11/23 00:10 Calculated Osmolality 299 mOsm/kg (285-295) H 11/11/23 00:10 Calcium 9.3 mg/dL (8.5-10.5) 11/11/23 00:10 Phosphorus 2.8 mg/dL (2.5-4.5) 11/11/23 00:10 Magnesium 1.7 mg/dL (1.7-2.3) 11/11/23 00:10 Total Bilirubin 0.5 mg/dL (0.15-1.2) 11/11/23 00:10 AST 20 U/L (0-40) 11/11/23 00:10 ALT 28 U/L (0-41) 11/11/23 00:10 Alkaline Phosphatase 50 U/L (40-130) 11/11/23 00:10 Creatine Kinase 102 U/L (39-308) 11/11/23 00:10 Total Protein 6.6 g/dL (6.6-8.7) 11/11/23 00:10 Albumin 3.9 g/dL (3.5-5.2) 11/11/23 00:10 Globulin 2.7 g/dL (1.3-4.6) 11/11/23 00:10 Urine Color Yellow (Yellow) 11/11/23 00:10 Urine Appearance Clear (CLEAR) 11/11/23 00:10 Urine pH 6 (5-7) 11/11/23 00:10 Ur Specific [place] 1.010 (1.005-1.030) 11/11/23 00:10 Urine Protein Neg (Negative) 11/11/23 00:10 Urine Glucose (UA) Norm (Normal) 11/11/23 00:10 Urine Ketones 1+ (Negative) H 11/11/23 00:10 Urine Blood Neg (Negative) 11/11/23 00:10 Urine Nitrate Negative (Negative) 11/11/23 00:10 Urine Bilirubin Neg (Negative) 11/11/23 00:10 Urine Urobilinogen 4 mg/dL (Negative) H 11/11/23 00:10 Ur Leukocyte Esterase Negative (Negative) 11/11/23 00:10 Valproic Acid 41.4 ug/mL (50-100) L 11/11/23 00:10 Ethyl Alcohol < 10 mg/dL (0-10) 11/11/23 00:10 No radiology studies performed this visit Discharge Plan Discharge Patient Disposition: Home Clinical Impression: Generalized seizure Condition: Stable Prescriptions: No Action Ozempic 0.25 mg or 0.5 mg (2 mg/3 mL) pen injector 0.5 mg SUBCUT .Weekly albuterol sulfate 90 mcg/actuation HFA aerosol inhaler 2 puff inhalation Q4H PRN (Reason: Shortness Of Breath) fluticasone propion-salmeterol [Wixela Inhub] 250-50 mcg/dose blister with device 1 inh inhalation BID multivitamin Tablet 1 tab PO QAM sertraline [Zoloft] 100 mg tablet 200 mg PO DAILY Qty: 60 2RF trazodone 50 mg tablet 100 mg PO .HS PRN (Reason: insomnia) Qty: 60 2RF ibuprofen 800 mg tablet 800 mg PO Q8H PRN (Reason: pain) Qty: 20 0RF metoclopramide HCl 10 mg tablet 10 mg PO Q6H PRN (Reason: nausea and vomiting) Qty: 20 0RF chlorthalidone 25 mg tablet 25 mg PO QAM pantoprazole 20 mg tablet,delayed release (DR/EC) 20 mg PO QAM divalproex 500 mg tablet extended release 24 hr 500 mg PO BID potassium gluconate 595 mg (99 mg) Tablet 595 mg PO QAM diclofenac sodium 75 mg tablet,delayed release (DR/EC) 75 mg PO Q12H PRN (Reason: pain) Qty: 20 0RF ondansetron 4 mg tablet,disintegrating 4 mg PO Q6H PRN (Reason: nausea and vomiting) Qty: 14 0RF levetiracetam 500 mg tablet 500 mg PO BID Discharge Orders: Discharge ED (Routine); Ordered 11/11/23 Ordered By: Raymundo Li Referrals: Mann Soto MD [Primary Care Provider] - Patient Instructions: Recurrent Seizures in Adults (ED), Opioid Safety, Pain Management Activity Restrictions/Additional Instructions: To take your seizure medication as directed. Return for repeated episodes of seizure, fever, worsening mental status, other concerning symptoms. Coding Level of Care Code ED Associate Loan Officer for Nhung Yu
[2023-11-11 02:06] VITALS: BP 135/94; PULSE 78; RESP 18; O2SAT 100
== END 2023-11-11 01:57 | disposition home or self-care (01) ==
PROVIDERS: Emergency Provider Emergency Medicine; PCP Family Medicine
DX: G40.409 Other generalized epilepsy and epileptic syndromes, not intractable, without status epilepticus (principal); Z77.22 Contact with and (suspected) exposure to environmental tobacco smoke (acute) (chronic); Z79.85 Long-term (current) use of injectable non-insulin antidiabetic drugs
CPT/HCPCS: 80053; 80164; 80307; 81003; 82550; 83735; 84100; 85025; 93005; 96374; 96375; 99284; J1953; J2060